=== PATIENT | female | born 1965 | race Caucasian/White ===

== ENCOUNTER 2016-10-17 17:28 | Emergency (ER) | payer BC ==
[2016-10-17 17:40] VITALS: BP 140/78
[2016-10-17] MEDS ORDERED: Magnesium Citrate Solution 296 ML Bottle PO ONE (18:14)
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
[2016-10-17] MEDS ORDERED: Ondansetron 4 MG Tab.DIS PO ONE (18:39)
== END 2016-10-17 18:55 | disposition home or self-care (01) ==
LOC: KA.ED 17:28
DX: K64.9 Unspecified hemorrhoids (principal); K59.00 Constipation, unspecified; I10 Essential (primary) hypertension; K21.9 Gastro-esophageal reflux disease without esophagitis; F41.9 Anxiety disorder, unspecified; F32.9 Major depressive disorder, single episode, unspecified; E03.9 Hypothyroidism, unspecified; Z79.899 Other long term (current) drug therapy; Z98.890 Other specified postprocedural states; Z98.84 Bariatric surgery status; Z90.710 Acquired absence of both cervix and uterus; Z88.8 Allergy status to other drugs, medicaments and biological substances
CPT/HCPCS: 74020; 99283; A9270

== ENCOUNTER 2017-08-04 19:06 | Emergency (ER) | payer BC, OTHER ==
[2017-08-04] MEDS ORDERED: Sodium Chloride 0.9% 5 ML Syringe FLUSH PRN (19:13)
[2017-08-04] MEDS ORDERED: Ondansetron 4 MG/2 ML SDV IVPUSH ONE (19:13)
[2017-08-04] MEDS ORDERED: Sodium Chloride 0.9% 1,000 ML IV ONE (19:13)
--- NOTE | 2017-08-04 19:16 | EDM.PDOC ---
ED HPI GENERAL MEDICAL PROBLEM - General Chief Complaint: General Stated Complaint: Flank Pain Time Seen by Provider: 08/04/17 19:14 Source of Information: Reports: Patient History Limitations: Reports: No Limitations - History of Present Illness INITIAL COMMENTS - FREE TEXT/NARRATIVE: 52 YO WF presents to ER with 5 day history of dysuria, with frequency, urgency, and trace hematuria. Pt reports today she developed right flank pain and mild dizziness. Pt denies any history of UTI's in the past. Pt reports she had 1 episode of vomiting earlier today and states she still feels nauseated. Onset Date: 07/31/17 Duration: Day(s): (5) Location: Reports: Back Quality: Reports: Ache Severity: Mild Improves with: Reports: None Worsens with: Reports: None Associated Symptoms: Reports: Fever/Chills, Loss of Appetite, Nausea/Vomiting - Related Data Allergies Allergy/AdvReac Type Severity Reaction Status Date / Time sertraline HCl [From Zoloft] Allergy Rash Verified 10/17/16 17:41 Home Meds: Home Meds Levothyroxine [Synthroid] 100 mcg PO DAILY 07/03/13 [History] Multivitamin [Multivitamins] 1 tab PO DAILY 07/03/13 [History] lamoTRIgine [Lamictal] 250 mg PO BID 07/03/13 [History] Docusate Sodium [Colace] 100 mg PO DAILY 08/31/15 [History] Fish Oil/[place]-3 Fatty Acids [Fish Oil 1,000 MG] 2 cap PO DAILY 08/31/15 [ History] Gabapentin [Neurontin] 300 mg PO BEDTIME 08/31/15 [History] Losartan/Hydrochlorothiazide [Hyzaar 100-25] 0.5 tab PO DAILY 08/31/15 [History] Polyethylene Glycol 3350 [Miralax] 17 gm PO DAILY 08/31/15 [History] QUEtiapine Fumarate [Seroquel] 600 mg PO BEDTIME 08/31/15 [History] Cyanocobalamin (Vitamin B12) [Vitamin B12] 1,000 mcg PO DAILY 03/09/16 [History] Fexofenadine [Mare] 180 mg PO DAILY PRN 03/09/16 [History] ClonazePAM [KlonoPIN] 1 mg PO QID 10/17/16 [History] Fluticasone Propionate [Flonase] 2 spray NASBOTH DAILY PRN 10/17/16 [History] Acetaminophen/HYDROcodone [[place] 325-5 MG] 1 tab PO Q6H 5 Days #20 tablet [Rx] Baclofen 10 mg PO TID 07/20/17 [History] Calc/D3/Mag/Zn/Director Of Quantitative Research/[place] [Calcium 600 MG Plus Vit D] 2 each PO DAILY [History] Melatonin [Melatin] 3 mg PO BEDTIME 07/20/17 [History] Non-Formulary Medication [NF Drug] 1 PRN 07/20/17 [History] Ranitidine [Zantac] 150 mg PO DAILY 07/20/17 [History] Cephalexin [Keflex] 500 mg PO Q6H #40 cap 08/04/17 [Rx] Ondansetron [Zofran ODT] 4 mg PO Q8HR PRN #10 tab.dis 08/04/17 [Rx] Phenazopyridine HCl [Pyridium] 200 mg PO TID #6 tablet 08/04/17 [Rx] Past Medical History Cardiovascular History: Reports: Hypertension Gastrointestinal History: Reports: GERD Genitourinary History: Reports: None 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: Dysfunctional 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 Bleeding, Musculoskeletal History: Reports: Other (See Below) Other Musculoskeletal History: shoulder fracture, and rotator cuff tear Psychiatric History: Reports: Anxiety, Depression Endocrine/Metabolic History: Reports: Hypothyroidism - Infectious Disease History Infectious Disease History: Reports: Chicken Pox, Measles, Mumps, Shingles - Past Surgical History GI Surgical History: Reports: Bariatric Procedure Musculoskeletal Surgical History: Reports: Shoulder Surgery Social & Family History - Family History Cardiac: Reports: Heart Murmur, [place] - Tobacco Use Smoking Status *Q: Never Smoker Second Hand Smoke Exposure: No - Caffeine Use Caffeine Use: Reports: Coffee, Energy Drinks, Soda Caffeine Use Comment: rare caffiene use. - Alcohol Use Days Per Week of Alcohol Use: 0 - Recreational Drug Use Recreational Drug Use: No ED ROS GENERAL - Review of Systems Review Of Systems: See Below Constitutional: Reports: No Symptoms HEENT: Reports: No Symptoms Respiratory: Reports: No Symptoms Cardiovascular: Reports: No Symptoms Endocrine: Reports: No Symptoms GI/Abdominal: Reports: Nausea, Vomiting : Reports: Dysuria, Flank Pain, Frequency, Hematuria, Urgency Musculoskeletal: Reports: No Symptoms Skin: Reports: No Symptoms Neurological: Reports: No Symptoms Psychiatric: Reports: No Symptoms Hematologic/Lymphatic: Reports: No Symptoms Immunologic: Reports: No Symptoms ED EXAM, GENERAL - Physical Exam Exam: See Below Exam Limited By: No Limitations General Appearance: Alert, WD/WN, No Apparent Distress Neck: Normal Inspection, Supple, Non-Tender, Full Range of Motion Respiratory/Chest: No Respiratory Distress, Lungs Clear, Normal Breath Sounds, No Accessory Muscle Use, Chest Non-Tender Cardiovascular: Normal Peripheral Pulses, Regular Rate, Rhythm, No Edema, No Gallop, No JVD, No Murmur, No Rub GI/Abdominal: Normal Bowel Sounds, Soft, Non-Tender, No Organomegaly, No Distention, No Abnormal Bruit, No Mass Back Exam: Full Range of Motion, CVA Tenderness (R) Extremities: Normal Inspection, Normal Range of Motion, Non-Tender, Normal Capillary Refill, No Pedal Edema Neurological: Alert, Oriented, CN II-XII Intact, Normal Cognition, Normal Gait, Normal Reflexes, No Motor/Sensory Deficits Psychiatric: Normal Affect, Normal Mood Skin Exam: Warm, Dry, Intact, Normal Color, No Rash Lymphatic: No Adenopathy Course - Orders/Labs/Meds Orders: Active Orders 24 hr Category Date Time Status Peripheral IV Care [RC] . DIRECTED Care 08/04/17 19:13 Active Sodium Chloride 0.9% [Normal Saline] 1,000 ml Med 08/04/17 19:13 Active IV .BOLUS Sodium Chloride 0.9% [Syrex Flush] Med 08/04/17 19:13 Active 5 ml FLUSH Q8HR PRN Peripheral IV Insertion Adult [OM.PC] Routine Oth 08/04/17 19:13 Ordered Medication Orders Sodium Chloride (Normal Saline) 1,000 mls @ 999 mls/hr IV .BOLUS ONE Stop: 08/04/17 20:13 Sodium Chloride (Syrex Flush) 5 ml FLUSH Q8HR PRN PRN Reason: Keep Vein Open Labs: Laboratory Tests 08/04/17 08/04/17 08/04/17 Range/Units 19:15 19:30 19:30 WBC 5.9 (5.0-10.0) 10^3/uL RBC 4.33 (3.80-5.50) 10^6/uL Hgb 13.1 (12.0-16.0) g/dL Hct 41.6 (37.0-47.0) % MCV 96.0 H (82.0-92.0) fL MCH 30.1 (27.0-31.0) pg MCHC 31.4 L (32.0-36.0) g/dL RDW 12.8 (11.5-14.5) % Plt Count 294 (150-300) 10^3/uL MPV 8.3 (7.4-10.4) fL Neut % (Auto) 60.9 (50.0-70.0) % Lymph % (Auto) 26.4 (20.0-40.0) % [place] % (Auto) 6.8 (2.0-8.0) % Eos % (Auto) 0.8 L (1.0-3.0) % Baso % (Auto) 5.1 H (0.0-1.0) % Neut # (Auto) 3.6 (2.5-7.0) 10^3/uL Lymph # (Auto) 1.6 (1.0-4.0) 10^3/uL [place] # (Auto) 0.4 (0.1-0.8) 10^3/uL Eos # (Auto) 0.0 L (0.1-0.3) 10^3/uL Baso # (Auto) 0.3 H (0.0-0.1) 10^3/uL Sodium 139 (136-145) mmol/L Potassium 4.0 (3.3-5.3) mmol/L Chloride 100 (98-115) mmol/L Carbon Dioxide 29.5 (21.0-32.0) mmol/L BUN 12 (6-25) mg/dL Creatinine 0.76 (0.51-1.17) mg/dL Est Cr Clr Drug Dosing TNP Estimated GFR (MDRD) > 60 mL/min Glucose 97 (70-110) mg/dL Calcium 9.4 (8.7-10.3) mg/dL Specimen Type Urinvoid Urine Color Yellow (YELLOW) Urine Appearance Slightly cloudy H (CLEAR) Urine pH 6.0 (5.0-9.0) Ur Specific [place] 1.010 (1.005-1.030) Urine Protein Negative (NEGATIVE) mg/dL Urine Glucose (UA) Negative (NEGATIVE) mg/dL Urine Ketones Negative (NEGATIVE) mg/dL Urine Occult Blood Trace-intact H (NEGATIVE) Urine Nitrite Negative (NEGATIVE) Urine Bilirubin Negative (NEGATIVE) Urine Urobilinogen 0.2 (0.2-1.0) E.U./dL Ur Leukocyte Esterase Negative (NEGATIVE) Urine RBC 0-5 /HPF Urine WBC 0-5 /HPF Ur Epithelial Cells Moderate H /LPF Urine Bacteria Few (NONE TO FEW) /HPF Meds: Medications Generic Name Dose Route Start Last Admin Trade Name Freq PRN Reason Stop Dose Admin Sodium Chloride 1,000 mls @ 999 mls/hr 08/04/17 19:13 Normal Saline IV 08/04/17 20:13 .BOLUS ONE Sodium Chloride 5 ml 08/04/17 19:13 Syrex Flush FLUSH Q8HR PRN Keep Vein Open Discontinued Medications Generic Name Dose Route Start Last Admin Trade Name Freq PRN Reason Stop Dose Admin Ketorolac Tromethamine 30 mg 08/04/17 19:24 Toradol IVPUSH 08/04/17 19:25 ONETIME ONE Ondansetron HCl 4 mg 08/04/17 19:13 Zofran IVPUSH 08/04/17 19:14 ONETIME ONE Departure - Departure Time of Disposition: 20:12 Disposition: Home, Self-Care 01 Condition: Good Clinical Impression: Urinary tract infection Qualifiers: Urinary tract infection type: acute cystitis Hematuria presence: with hematuria Qualified Code(s): N30.01 - Acute cystitis with hematuria - Discharge Information Prescriptions: Ondansetron [Zofran ODT] 4 mg PO Q8HR PRN #10 tab.dis PRN Reason: Nausea Cephalexin [Keflex] 500 mg PO Q6H #40 cap Phenazopyridine HCl [Pyridium] 200 mg PO TID #6 tablet Instructions: Urinary Tract Infection, Adult Referrals: Heri Brewster MD [Primary Care Provider] - Forms: ED Department Discharge - My Orders Last 24 Hours: My Active Orders 08/04/17 19:13 Peripheral IV Care [RC] . DIRECTED Sodium Chloride 0.9% [Normal Saline] 1,000 ml IV .BOLUS Sodium Chloride 0.9% [Syrex Flush] 5 ml FLUSH Q8HR PRN Peripheral IV Insertion Adult [OM.PC] Routine - Assessment/Plan Last 24 Hours: My Active Orders 08/04/17 19:13 Peripheral IV Care [RC] . DIRECTED Sodium Chloride 0.9% [Normal Saline] 1,000 ml IV .BOLUS Sodium Chloride 0.9% [Syrex Flush] 5 ml FLUSH Q8HR PRN Peripheral IV Insertion Adult [OM.PC] Routine Assessment:: 1. Urinary tract infection Plan: 1. Keflex 500mg PO Q6 x 10 days 2. pyridium 200mg PO TID x 2 days 3. zofran 4mg ODT Q8 PRN vomiting 4. discharge home 5. follow up with PCP for further evaluatian and treatment 6. return to ER for worsening symptoms
[2017-08-04] MEDS ORDERED: Ketorolac 30 MG/ML SDV IVPUSH ONE (19:24)
[2017-08-04 19:53] LABS: CHLORIDE,CL 100 mmol/L (98-115); SODIUM,NA 139 mmol/L (136-145)
[2017-08-04] MEDS ORDERED: Cephalexin 250 MG Cap PO ONE (20:18)
[2017-08-04] MEDS ORDERED: Phenazopyridine 100 MG Tab PO ONE (20:22)
[2017-08-04 22:59] VITALS: BP 137/75
== END 2017-08-04 20:45 | disposition home or self-care (01) ==
LOC: KA.ED 19:06
DX: N30.01 Acute cystitis with hematuria (principal); I10 Essential (primary) hypertension; K21.9 Gastro-esophageal reflux disease without esophagitis; E03.9 Hypothyroidism, unspecified; Z88.8 Allergy status to other drugs, medicaments and biological substances; Z79.899 Other long term (current) drug therapy
CPT/HCPCS: 36415; 80048; 81001; 85025; 87086; 96361; 96374; 96375; 99284; A9270; J1885; J2405; J7030

== ENCOUNTER 2018-09-28 17:10 | Observation (INO) | payer BC ==
--- NOTE | 2018-09-28 17:24 | EDM.PDOC ---
ED HPI GENERAL MEDICAL PROBLEM - General Chief Complaint: Chest Pain Stated Complaint: CHEST PAIN Time Seen by Provider: 09/28/18 17:13 Source of Information: Reports: Patient History Limitations: Reports: No Limitations - History of Present Illness INITIAL COMMENTS - FREE TEXT/NARRATIVE: 53 YO WF presents to ER with chest pain with associated nausea/vomiting which began last night. Pt reports severe burning sensation in her chest which improved after a GI cocktail which was given to her by her PCP. Pt reports associated lightheadedness and 2 episode of vomiting. Pt denies shortness of breath, or diaphoresis. Pt with PMH of gastric bypass surgery with GERD which has been treated with protonix and zantac without improvement in her chest pain. Onset Date: 09/27/18 Duration: Day(s): (2) Location: Reports: Chest Quality: Reports: Burning Severity: Moderate Improves with: Reports: None Worsens with: Reports: None Associated Symptoms: Reports: Chest Pain, Headaches, Nausea/Vomiting Chest Pain Score (Numeric/FACES): 3 - Related Data Allergies Allergy/AdvReac Type Severity Reaction Status Date / Time sertraline HCl [From Zoloft] Allergy Rash Verified 09/28/18 17:18 Home Meds: Home Meds Multivitamin [Multivitamins] 1 tab PO DAILY 07/03/13 [History] lamoTRIgine [Lamictal] 250 mg PO BID 07/03/13 [History] Docusate Sodium [Colace] 100 mg PO DAILY 08/31/15 [History] Fish Oil/Arnett-3 Fatty Acids [Fish Oil 1,000 MG] 2 cap PO DAILY 08/31/15 [ History] Gabapentin [Neurontin] 300 mg PO BEDTIME 08/31/15 [History] Polyethylene Glycol 3350 [Miralax] 17 gm PO DAILY 08/31/15 [History] Cyanocobalamin (Vitamin B12) [Vitamin B12] 2,500 mcg PO DAILY 03/09/16 [History] ClonazePAM [KlonoPIN] 1 mg PO QID PRN 10/17/16 [History] Fluticasone Propionate [Flonase] 2 spray NASBOTH DAILY 10/17/16 [History] Baclofen 10 mg PO Q8H PRN 07/20/17 [History] Calc/D3/Mag/Zn/[employer] Apprentice/[place] [Calcium 600 MG Plus Vit D] 2 each PO DAILY [History] Melatonin [Melatin] 9 mg PO BEDTIME 07/20/17 [History] Ranitidine [Zantac] 300 mg PO BEDTIME 07/20/17 [History] Aspirin 81 mg PO DAILY 10/05/17 [History] Estrogens, Conjugated [Premarin] 1.25 mg PO DAILY 10/05/17 [History] Loratadine 10 mg PO DAILY 10/05/17 [History] QUEtiapine Fumarate [Seroquel] 900 mg PO BEDTIME 10/05/17 [History] Acetaminophen [Tylenol] 650 mg PO Q4H PRN tablet 10/06/17 [Rx] Levothyroxine 112 mcg PO ACBREAKFAST #60 tablet 10/06/17 [Rx] Propranolol [Inderal LA] 160 cap PO BEDTIME 01/31/18 [History] Sennosides/Docusate Sodium [Senna-S] 1 tab PO DAILY 01/31/18 [History] Cholecalciferol (Vitamin D3) [Vitamin D3] 2,000 unit PO DAILY 09/28/18 [History] Montelukast [Singulair] 10 mg PO BEDTIME 09/28/18 [History] Pantoprazole Sodium [Protonix] 40 mg PO DAILY 09/28/18 [History] SUMAtriptan Succinate [Imitrex] 100 mg PO ASDIRECTED PRN 09/28/18 [History] Past Medical History HEENT History: Reports: Allergic Rhinitis, Impaired Vision, Other (See Below) Other HEENT History: Mild nasal septum deviation to the right Cardiovascular History: Reports: Arrhythmia, Hypertension, Other (See Below) Other Cardiovascular History: First-degree AV block Respiratory History: Reports: Intubation, Previous, Pulmonary Fibrosis, Other ( See Below) Other Respiratory History: Chronic left sided lower atelectasis, scarring, and left pleural effusion with borderline pulmonary fibrosis t Gastrointestinal History: Reports: Chronic Constipation, Colon Polyp, GERD, Hemorrhoids, Pancreatitis, Other (See Below) Other Gastrointestinal History: Post operative pancreatitis after gastric bypass surgery and incidental cholecystectomy as below. Previous external hemorrhoidectomy 2 Genitourinary History: Reports: UTI, Recurrent INSURANCE VERIFIER History: Reports: Dysfunctional Uterine Bleeding, Fibroids, Other INSURANCE VERIFIER History: Full term without complications during pregnancies or deliveries. Surgical menopause secondary to uterine fibroids and dysfunctional uterine bleeding with history of bilateral ovarian cysts Musculoskeletal History: Reports: Arthritis, Back Pain, Chronic, Fracture, Neck Pain, Chronic, Osteoarthritis, Other (See Below) Other Musculoskeletal History: Left Colles' fracture on 07/03/13. Left proximal humeral/greater tuberosity fracture with concomitant rotator cuff tear on . Mild scoliosis Neurological History: Reports: Headaches, Chronic, Neuropathy, Peripheral, Vertigo, Other (See Below) Other Neuro History: Chronic intermittent vertigo with negative MRI of the brain as below Psychiatric History: Reports: Addiction, Anxiety, Bipolar, Depression, Panic Attack, Psych Hospitalization(s), Other (See Below) Other Psychiatric History: Bipolar disorder with multiple previous inpatient hospitalizations. Previous history of chronic narcotic use Endocrine/Metabolic History: Reports: Hypothyroidism Hematologic History: Reports: Anemia, B12 Deficiency, Iron Deficiency Immunologic History: Reports: None Oncologic (Cancer) History: Reports: None Dermatologic History: Reports: Other (See Below) Other Dermatologic History: Occasional tinea - Infectious Disease History Infectious Disease History: Reports: Chicken Pox, Measles, Mumps, Shingles - Past Surgical History Head Surgeries/Procedures: Reports: None HEENT Surgical History: Reports: Adenoidectomy, Oral Surgery, Tonsillectomy, Other (See Below) Other HEENT Surgeries/Procedures: Tonsillectomy and adenoidectomy at age 5. Complete teeth extraction. Nasal septum repair in about 2014 Cardiovascular Surgical History: Reports: None Respiratory Surgical History: Reports: None GI Surgical History: Reports: Bariatric Procedure, Cholecystectomy, Colonoscopy , EGD, Polypectomy Other GI Surgeries/Procedures: Colonoscopy and EGD in about 2013 with polypectomy 6 from the colon at that time with unknown type of colonic polyps. Gastric bypass with concomitant incidental cholecystectomy in about 2004, hemorrhoidectomy 01-12-18 Female Surgical History: Reports: Hysterectomy, Salpingo-Oophorectomy, Other (See Below) Other Female Surgeries/Procedures: Complete hysterectomy with bilateral salpingo-oophorectomy secondary to dysfunctional uterine bleeding, uterine fibroids, and bilateral ovarian cysts on 02/07/14 Neurological Surgical History: Reports: C-Spine, Discectomy, Spinal Fusion, Other (See Below) Other Neurological Surgeries/Procedures: C-spine surgery including spinal fusion and discectomy, level unknown, with cadaver vertebra in her 30s Musculoskeletal Surgical History: Reports: Shoulder Surgery, Other (See Below) Other Musculoskeletal Surgeries/Procedures:: Left Shoulder open surgery including rotator cuff repair in about 2016 - Past Imaging History Past Imaging History: Reports: CAT Scan (CT of the chest on 04/21/17. CT of the abdomen and pelvis with IV contrast on 08/20/17. CT of the sinonasal region on 09/17 and 05/15/14. CT of the left humerus on 09/03/15), MRI (Lumbar spine on . MRI of the left shoulder on 07/20/17. MRI of the brain on 08/13/17), Ultrasound (Ultrasound of the chest in September 2016 with records not available), Other (See Below) (Barium enema on 10/26/13) Social & Family History - Family History HEENT: Reports: Glaucoma, Other (See Below) Other HEENT Family History: Paternal grandmother with glaucoma Cardiac: Reports: Blood Clots/VTE/DVT, CAD, Heart Murmur, IA, Other (See Below) Other Cardiac Family History: Father with history of DVTs of the legs. Brother with heart murmur secondary to Down syndrome. Maternal grandfather with fatal IA at age 57 Respiratory: Reports: None GI: Reports: Cholelithiasis, Other (See Below) Other GI Family History: Mother with cholelithiasis : Reports: None OBGYN: Reports: None Musculoskeletal: Reports: None Neurological: Reports: CVA, Seizure, Other (See Below) Other Neurological Family History: Mother with recurrent CVAs initially in her 60s. Maternal grandmother with recurrent CVAs with fatal CVA at age 93. Brother with Down syndrome's with recurrent seizures. Father with recurrent seizures secondary to MVA/head injury Psychiatric: Reports: Anxiety, Depression, Other (See Below) Other Psychiatric Family History: Mother and sisters 3 with anxiety depression disorder Endocrine/Metabolic: Reports: Diabetes, type II, IDDM, Other (See Below) Other Endocrine/Metabolic Family History: Mother with IDDM Hematologic: Reports: None Immunologic: Reports: None Dermatologic: Reports: None Oncologic: Reports: Prostate, Other (See Below) Other Oncologic Family History: Mother with unknown type of fatal cancer in her 70s. Brother with fatal stomach cancer in his 40s. Brother with testicular and prostate cancer in his 40s. 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[employer]) ED ROS GENERAL - Review of Systems Review Of Systems: See Below Constitutional: Reports: No Symptoms HEENT: Reports: No Symptoms Respiratory: Reports: No Symptoms Cardiovascular: Reports: Chest Pain, Lightheadedness Endocrine: Reports: No Symptoms GI/Abdominal: Reports: Nausea, Vomiting : Reports: No Symptoms Musculoskeletal: Reports: No Symptoms Skin: Reports: No Symptoms Neurological: Reports: No Symptoms Psychiatric: Reports: No Symptoms Hematologic/Lymphatic: Reports: No Symptoms Immunologic: Reports: No Symptoms ED EXAM, GENERAL - Physical Exam Exam: See Below Exam Limited By: No Limitations General Appearance: Alert, WD/WN, No Apparent Distress Throat/Mouth: Normal Inspection, Normal Lips, Normal Teeth, Normal Gums, Normal Oropharynx, Normal Voice, No Airway Compromise Head: Atraumatic, Normocephalic Neck: Normal Inspection, Supple, Non-Tender, Full Range of Motion Respiratory/Chest: No Respiratory Distress, Lungs Clear, Normal Breath Sounds, No Accessory Muscle Use, Chest Non-Tender Cardiovascular: Normal Peripheral Pulses, Regular Rate, Rhythm, No Edema, No Gallop, No JVD, No Murmur, No Rub GI/Abdominal: Normal Bowel Sounds, Soft, Non-Tender, No Organomegaly, No Distention, No Abnormal Bruit, No Mass Back Exam: Normal Inspection, Full Range of Motion, NT Extremities: Normal Inspection, Normal Range of Motion, Non-Tender, Normal Capillary Refill, No Pedal Edema Neurological: Alert, Oriented, CN II-XII Intact, Normal Cognition, Normal Gait, Normal Reflexes, No Motor/Sensory Deficits Psychiatric: Normal Affect, Normal Mood Skin Exam: Warm, Dry, Intact, Normal Color, No Rash Lymphatic: No Adenopathy EKG INTERPRETATION EKG Date: 09/28/18 Time: 17:23 Rhythm: NSR Rate (Beats/Min): 52 [place]: Normal P-Wave: Present QRS: Normal ST-T: Normal QT: Normal Comparison: No Change (09/2017) Course - Vital Signs Last Recorded V/S: Last Vital Signs Temp 36.9 C 09/28/18 17:14 Pulse 68 09/28/18 17:14 Resp 20 09/28/18 17:14 BP 150/70 H 09/28/18 17:14 Pulse Ox 97 09/28/18 17:14 - Orders/Labs/Meds Orders: Active Orders 24 hr Category Date Time Status EKG Documentation Completion [RC] ASDIRECTED Care 09/28/18 17:12 Active Peripheral IV Care [RC] . DIRECTED Care 09/28/18 17:12 Active Sodium Chloride 0.9% [Saline Flush] Med 09/28/18 17:12 Active 10 ml FLUSH Q8HR PRN Peripheral IV Insertion Adult [OM.PC] Routine Oth 09/28/18 17:12 Ordered EKG 12 Lead [EK] Routine Ther 09/28/18 17:12 Ordered Medication Orders Sodium Chloride (Saline Flush) 10 ml FLUSH Q8HR PRN PRN Reason: keep vein open Last Admin: 09/28/18 17:30 Dose: 10 ml Labs: Laboratory Tests 09/28/18 09/28/18 Range/Units 17:30 17:30 WBC 5.59 (5.00-10.00) 10^3/uL RBC 4.08 (3.80-5.50) 10^6/uL Hgb 12.7 (12.0-16.0) g/dL Hct 38.3 (37.0-47.0) % MCV 93.9 H (82.0-92.0) fL MCH 31.1 H (27.0-31.0) pg MCHC 33.2 (32.0-36.0) g/dL RDW 12.2 (11.5-14.5) % Plt Count 297 (150-400) 10^3/uL MPV 9.7 (7.4-10.4) fL Immature Gran % (Auto) 0.2 (0.0-5.0) % Neut % (Auto) 50.8 (50.0-70.0) % Lymph % (Auto) 38.3 (20.0-40.0) % [place] % (Auto) 7.9 (2.0-8.0) % Eos % (Auto) 2.3 (1.0-3.0) % Baso % (Auto) 0.5 (0.0-1.0) % Immature Gran # (Auto) 0.01 (0.00-0.50) 10^3/uL Neut # (Auto) 2.84 (2.50-7.00) 10^3/uL Lymph # (Auto) 2.14 (1.00-4.00) 10^3/uL [place] # (Auto) 0.44 (0.10-0.80) 10^3/uL Eos # (Auto) 0.13 (0.10-0.30) 10^3/uL Baso # (Auto) 0.03 (0.00-0.10) 10^3/uL Sodium 141 (136-145) mmol/L Potassium 4.4 (3.3-5.3) mmol/L Chloride 103 (98-115) mmol/L Carbon Dioxide 26.8 (21.0-32.0) mmol/L Anion Gap 15.6 H (5-15) mmol/L BUN 13 (6-25) mg/dL Creatinine 0.74 (0.51-1.17) mg/dL Est Cr Clr Drug Dosing 88.69 mL/min Estimated GFR (MDRD) > 60 mL/min Glucose 93 (75 - 99) mg/dL Calcium 9.1 (8.7-10.3) mg/dL Total Bilirubin 0.4 (0.2-1.0) mg/dL AST 36 (15-37) U/L ALT 26 (12-78) U/L Alkaline Phosphatase 105 (46-116) IU/L Creatine Kinase 127 (26-276) U/L CK-MB (CK-2) 1.70 (0.00-4.30) ng/mL Troponin I 0.04 (0.00-0.070) ng/mL Total Protein 6.8 (6.4-8.2) g/dL Albumin 3.63 (3.00-4.80) g/dL Lipase 105 (73-393) U/L Meds: Medications Generic Name Dose Route Start Last Admin Trade Name Freq PRN Reason Stop Dose Admin Sodium Chloride 10 ml 09/28/18 17:12 09/28/18 17:30 Saline Flush FLUSH 10 ml Q8HR PRN Administration keep vein open Discontinued Medications Generic Name Dose Route Start Last Admin Trade Name Freq PRN Reason Stop Dose Admin Aspirin 270 mg 09/28/18 17:53 Aspirin PO 09/28/18 17:54 ONETIME ONE Aspirin 243 mg 09/28/18 17:55 Aspirin PO 09/28/18 17:56 ONETIME ONE Nitroglycerin 1 gm 09/28/18 17:53 09/28/18 17:58 Nitro-Bid 2% TOP 09/28/18 17:54 1 gm ONETIME ONE Administration - Radiology Interpretation Free Text/Narrative:: CXR- NAD Departure - Departure Time of Disposition: 18:23 Disposition: Refer to Observation Condition: Fair Clinical Impression: Atypical chest pain Referrals: Guillermo Fritz PA-C [Primary Care Provider] - Forms: ED Department Discharge - My Orders Last 24 Hours: My Active Orders 09/28/18 17:12 EKG Documentation Completion [RC] ASDIRECTED Peripheral IV Care [RC] . DIRECTED Sodium Chloride 0.9% [Saline Flush] 10 ml FLUSH Q8HR PRN Peripheral IV Insertion Adult [OM.PC] Routine EKG 12 Lead [EK] Routine - Assessment/Plan Last 24 Hours: My Active Orders 09/28/18 17:12 EKG Documentation Completion [RC] ASDIRECTED Peripheral IV Care [RC] . DIRECTED Sodium Chloride 0.9% [Saline Flush] 10 ml FLUSH Q8HR PRN Peripheral IV Insertion Adult [OM.PC] Routine EKG 12 Lead [EK] Routine Assessment:: 1. chest pain- improved with nitro Plan: 1. admit for obs- Dr Del Cid 2. ASA/Nitro 3. supportive care 4. trop I Q6 x 3
[2018-09-28] MEDS: Sodium Chloride 0.9% 10 ML Syringe FLUSH PRN ×2 (17:30→22:38)
--- NOTE | 2018-09-28 17:46 | CR ---
[id number] RAD/RAD Chest PA And Lateral EXAM: RAD Chest PA And Lateral CLINICAL DATA: CHEST PAIN COMPARISON: NO PREVIOUS SIMILAR EXAM IS AVAILABLE. FINDINGS: The lungs are clear. There is elevation of the left hemidiaphragm. Surgical changes of the cervical spine are seen. The cardiac silhouette is within normal limits. IMPRESSION: ELEVATION OF LEFT HEMIDIAPHRAGM. NO PNEUMOTHORAX. NO OBVIOUS PLEURAL EFFUSION. NO PNEUMONIA. Rahul Galan MD 09/28/18 1244 Thank you for allowing us to participate in the care of your patient.
[2018-09-28] MEDS ORDERED: Nitroglycerin 2% Oint 1 GM UD Packet TOP ONE (17:53)
[2018-09-28] MEDS ORDERED: Aspirin 81 MG Tab.Chew PO ONE ×2 (17:53→17:55)
[2018-09-28 18:10] LABS: ANION GAP 15.6 mmol/L (5-15); CHLORIDE,CL 103 mmol/L (98-115); SODIUM,NA 141 mmol/L (136-145)
[2018-09-28] MEDS ORDERED: Morphine 2 MG/ML Syringe IVPUSH PRN (18:27)
[2018-09-28] MEDS ORDERED: Sodium Chloride 0.9% 10 ML Syringe FLUSH PRN (18:27)
[2018-09-28] MEDS ORDERED: Ondansetron 4 MG/2 ML SDV IV PRN (18:27)
[2018-09-28] MEDS: Nitroglycerin 2% Oint 1 GM UD Packet TOP SCH (20:09)
[2018-09-28] MEDS ORDERED: Acetaminophen 325 MG Tab PO PRN (20:33)
[2018-09-28] MEDS ORDERED: SUMAtriptan 25 MG Tab PO PRN (20:33)
[2018-09-28] MEDS ORDERED: Baclofen 10 MG Tab PO PRN (20:33)
[2018-09-28] MEDS ORDERED: Montelukast 10 MG Tab PO SCH (21:00)
[2018-09-28] MEDS ORDERED: Propranolol 80 MG Cap.ER PO SCH (21:00)
[2018-09-28] MEDS ORDERED: Gabapentin 300 MG Cap PO SCH (21:00)
[2018-09-28] MEDS ORDERED: Melatonin 3 MG Tab PO SCH (21:00)
[2018-09-28] MEDS ORDERED: QUEtiapine 100 MG Tab PO SCH (21:00)
[2018-09-28] MEDS ORDERED: Nitroglycerin 0.4 MG Tab.SL SL ONE (23:03)
[2018-09-28] MEDS: ClonazePAM 0.5 MG Tab PO PRN (23:17)
[2018-09-28] MEDS: lamoTRIgine 100 MG Tab PO SCH (23:47)
[2018-09-29] MEDS: Nitroglycerin 2% Oint 1 GM UD Packet TOP SCH ×2 (00:42→06:41)
[2018-09-29] MEDS ORDERED: Nitroglycerin 2% Oint 1 GM UD Packet TOP ONE (04:30)
[2018-09-29 06:40] VITALS: BP 91/56
[2018-09-29] MEDS ORDERED: Levothyroxine 112 MCG Tab PO SCH (07:30)
[2018-09-29 07:58] LABS: ANION GAP 14.3 mmol/L (5-15); CHLORIDE,CL 104 mmol/L (98-115); SODIUM,NA 143 mmol/L (136-145)
[2018-09-29] MEDS: lamoTRIgine 100 MG Tab PO SCH (08:01)
--- NOTE | 2018-09-29 08:49 | PCM.HP ---
H&P History of Present Illness - General Date of Service: 09/29/18 Admit Problem/Dx: Admission Diagnosis/Problem Admission Diagnosis/Problem Chest pain Source of Information: Patient Chest Pain Score (Numeric/FACES): 3 - Related Data Allergies/Adverse Reactions: Allergies Allergy/AdvReac Type Severity Reaction Status Date / Time sertraline HCl [From Zoloft] Allergy Rash Verified 09/28/18 17:18 Home Medications: Home Meds Multivitamin [Multivitamins] 1 tab PO DAILY 07/03/13 [History] lamoTRIgine [Lamictal] 250 mg PO BID 07/03/13 [History] Docusate Sodium [Colace] 100 mg PO DAILY 08/31/15 [History] Gabapentin [Neurontin] 300 mg PO BEDTIME 08/31/15 [History] Polyethylene Glycol 3350 [Miralax] 17 gm PO DAILY 08/31/15 [History] Cyanocobalamin (Vitamin B12) [Vitamin B12] 2,500 mcg PO DAILY 03/09/16 [History] ClonazePAM [KlonoPIN] 1 mg PO QID PRN 10/17/16 [History] Fluticasone Propionate [Flonase] 2 spray NASBOTH DAILY 10/17/16 [History] Baclofen 10 mg PO Q8H PRN 07/20/17 [History] Calc/D3/Mag/Zn/Information Systems Manager/[place] [Calcium 600 MG Plus Vit D] 2 each PO DAILY [History] Melatonin [Melatin] 9 mg PO BEDTIME 07/20/17 [History] Estrogens, Conjugated [Premarin] 1.25 mg PO DAILY 10/05/17 [History] Loratadine 10 mg PO DAILY 10/05/17 [History] QUEtiapine Fumarate [Seroquel] 900 mg PO BEDTIME 10/05/17 [History] Acetaminophen [Tylenol] 650 mg PO Q4H PRN tablet 10/06/17 [Rx] Levothyroxine 112 mcg PO ACBREAKFAST #60 tablet 10/06/17 [Rx] Propranolol [Inderal LA] 160 cap PO BEDTIME 01/31/18 [History] Sennosides/Docusate Sodium [Senna-S] 1 tab PO DAILY 01/31/18 [History] Cholecalciferol (Vitamin D3) [Vitamin D3] 2,000 unit PO DAILY 09/28/18 [History] Pantoprazole Sodium [Protonix] 40 mg PO DAILY 09/28/18 [History] SUMAtriptan Succinate [Imitrex] 100 mg PO ASDIRECTED PRN 09/28/18 [History] Montelukast [Singulair] 10 mg PO DAILY #0 09/29/18 [Rx] Omeprazole 20 mg PO DAILY #30 tab 09/29/18 [Rx] Past Medical History HEENT History: Reports: Allergic Rhinitis, Impaired Vision, Other (See Below) Other HEENT History: Mild nasal septum deviation to the right Cardiovascular History: Reports: Arrhythmia, Hypertension, Other (See Below) Other Cardiovascular History: First-degree AV block Respiratory History: Reports: Intubation, Previous, Pulmonary Fibrosis, Other ( See Below) Other Respiratory History: Chronic left sided lower atelectasis, scarring, and left pleural effusion with borderline pulmonary fibrosis t Gastrointestinal History: Reports: Chronic Constipation, Colon Polyp, GERD, Hemorrhoids, Pancreatitis, Other (See Below) Other Gastrointestinal History: Post operative pancreatitis after gastric bypass surgery and incidental cholecystectomy as below. 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 Surgical menopause secondary to uterine fibroids and dysfunctional uterine bleeding with history of bilateral ovarian cysts Musculoskeletal History: Reports: Arthritis, Back Pain, Chronic, Fracture, Neck Pain, Chronic, Osteoarthritis, Other (See Below) Other Musculoskeletal History: Left Colles' fracture on 07/03/13. Left proximal humeral/greater tuberosity fracture with concomitant rotator cuff tear on . Mild scoliosis Neurological History: Reports: Headaches, Chronic, Neuropathy, Peripheral, Vertigo, Other (See Below) Other Neuro History: Chronic intermittent vertigo with negative MRI of the brain as below Psychiatric History: Reports: Addiction, Anxiety, Bipolar, Depression, Panic Attack, Psych Hospitalization(s), Other (See Below) Other Psychiatric History: Bipolar disorder with multiple previous inpatient hospitalizations. Previous history of chronic narcotic use Endocrine/Metabolic History: Reports: Hypothyroidism Hematologic History: Reports: Anemia, B12 Deficiency, Iron Deficiency Immunologic History: Reports: None Oncologic (Cancer) History: Reports: None Dermatologic History: Reports: Other (See Below) Other Dermatologic History: Occasional tinea - Infectious Disease History Infectious Disease History: Reports: Chicken Pox, Measles, Mumps, Shingles - Past Surgical History Head Surgeries/Procedures: Reports: None HEENT Surgical History: Reports: Adenoidectomy, Oral Surgery, Tonsillectomy, Other (See Below) Other HEENT Surgeries/Procedures: Tonsillectomy and adenoidectomy at age 5. Complete teeth extraction. Nasal septum repair in about 2014 Cardiovascular Surgical History: Reports: None Respiratory Surgical History: Reports: None GI Surgical History: Reports: Bariatric Procedure, Cholecystectomy, Colonoscopy , EGD, Polypectomy Other GI Surgeries/Procedures: Colonoscopy and EGD in about 2013 with polypectomy 6 from the colon at that time with unknown type of colonic polyps. Gastric bypass with concomitant incidental cholecystectomy in about 2004, hemorrhoidectomy 01-12-18 Female Surgical History: Reports: Hysterectomy, Salpingo-Oophorectomy, Other (See Below) Other Female Surgeries/Procedures: Complete hysterectomy with bilateral salpingo-oophorectomy secondary to dysfunctional uterine bleeding, uterine fibroids, and bilateral ovarian cysts on 02/07/14 Neurological Surgical History: Reports: C-Spine, Discectomy, Spinal Fusion, Other (See Below) Other Neurological Surgeries/Procedures: C-spine surgery including spinal fusion and discectomy, level unknown, with cadaver vertebra in her 30s Musculoskeletal Surgical History: Reports: Shoulder Surgery, Other (See Below) Other Musculoskeletal Surgeries/Procedures:: Left Shoulder open surgery including rotator cuff repair in about 2016 - Past Imaging History Past Imaging History: Reports: CAT Scan (CT of the chest on 04/21/17. CT of the abdomen and pelvis with IV contrast on 08/20/17. CT of the sinonasal region on 09/17 and 05/15/14. CT of the left humerus on 09/03/15), MRI (Lumbar spine on . MRI of the left shoulder on 07/20/17. MRI of the brain on 08/13/17), Ultrasound (Ultrasound of the chest in September 2016 with records not available), Other (See Below) (Barium enema on 10/26/13) Social & Family History - Family History HEENT: Reports: Glaucoma, Other (See Below) Other HEENT Family History: Paternal grandmother with glaucoma Cardiac: Reports: Blood Clots/VTE/DVT, CAD, Heart Murmur, [place], Other (See Below) Other Cardiac Family History: Father with history of DVTs of the legs. Brother with heart murmur secondary to Down syndrome. Maternal grandfather with fatal [place] at age 57 Respiratory: Reports: None GI: Reports: Cholelithiasis, Other (See Below) Other GI Family History: Mother with cholelithiasis : Reports: None OBGYN: Reports: None Musculoskeletal: Reports: None Neurological: Reports: CVA, Seizure, Other (See Below) Other Neurological Family History: Mother with recurrent CVAs initially in her 60s. Maternal grandmother with recurrent CVAs with fatal CVA at age 93. Brother with Down syndrome's with recurrent seizures. Father with recurrent seizures secondary to MVA/head injury Psychiatric: Reports: Anxiety, Depression, Other (See Below) Other Psychiatric Family History: Mother and sisters 3 with anxiety depression disorder Endocrine/Metabolic: Reports: Diabetes, type II, IDDM, Other (See Below) Other Endocrine/Metabolic Family History: Mother with IDDM Hematologic: Reports: None Immunologic: Reports: None Dermatologic: Reports: None Oncologic: Reports: Prostate, Other (See Below) Other Oncologic Family History: Mother with unknown type of fatal cancer in her 70s. Brother with fatal stomach cancer in his 40s. Brother with testicular and prostate cancer in his 40s. 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[employer]) H&P Review of Systems - Review of Systems: Review Of Systems: See Below General: Reports: No Symptoms HEENT: Reports: No Symptoms Pulmonary: Reports: No Symptoms Cardiovascular: Reports: Blood Pressure Problem Gastrointestinal: Reports: Black Stool, Constipation, Diarrhea, Decreased Appetite, Difficulty Swallowing, Nausea Genitourinary: Reports: No Symptoms Musculoskeletal: Reports: No Symptoms Skin: Reports: No Symptoms Neurological: Reports: No Symptoms Hematologic/Lymphatic: Reports: No Symptoms Exam - Exam Exam: See Below - Vital Signs Vital Signs: Last Vital Signs Temp 96.1 F 09/29/18 06:39 Pulse 50 L 09/29/18 06:39 Resp 20 09/29/18 06:39 BP 91/56 L 09/29/18 06:39 Pulse Ox 96 09/29/18 06:39 Weight: 175 lb 1.6 oz - Exam General: Alert, Oriented, 4 Neck: Supple Lungs: Clear to Auscultation, Normal Respiratory Effort Cardiovascular: Regular Rate, Regular Rhythm GI/Abdominal Exam: Normal Bowel Sounds, Soft, Non-Tender, No Organomegaly, No Distention, No Abnormal Bruit, No Mass, Pelvis Stable (Female) Exam: Deferred Extremities: No Pedal Edema Peripheral Pulses: 1+: Radial (L), 2+: Radial (R) Skin: Dry Neurological: Cranial Nerves Intact Neuro Extensive - Mental Status: Alert Psychiatric: Alert, Anxious - Patient Data Lab Results Last 24 hrs: Laboratory Results - last 24 hr 09/28/18 09/28/18 09/28/18 Range/Units 09:55 17:30 17:30 WBC 5.59 (5.00-10.00) 10^3/uL RBC 4.08 (3.80-5.50) 10^6/uL Hgb 12.7 (12.0-16.0) g/dL Hct 38.3 (37.0-47.0) % MCV 93.9 H (82.0-92.0) fL MCH 31.1 H (27.0-31.0) pg MCHC 33.2 (32.0-36.0) g/dL RDW 12.2 (11.5-14.5) % Plt Count 297 (150-400) 10^3/uL MPV 9.7 (7.4-10.4) fL Immature Gran % (Auto) 0.2 (0.0-5.0) % Neut % (Auto) 50.8 (50.0-70.0) % Lymph % (Auto) 38.3 (20.0-40.0) % [place] % (Auto) 7.9 (2.0-8.0) % Eos % (Auto) 2.3 (1.0-3.0) % Baso % (Auto) 0.5 (0.0-1.0) % Immature Gran # (Auto) 0.01 (0.00-0.50) 10^3/uL Neut # (Auto) 2.84 (2.50-7.00) 10^3/uL Lymph # (Auto) 2.14 (1.00-4.00) 10^3/uL [place] # (Auto) 0.44 (0.10-0.80) 10^3/uL Eos # (Auto) 0.13 (0.10-0.30) 10^3/uL Baso # (Auto) 0.03 (0.00-0.10) 10^3/uL Sodium 141 (136-145) mmol/L Potassium 4.4 (3.3-5.3) mmol/L Chloride 103 (98-115) mmol/L Carbon Dioxide 26.8 (21.0-32.0) mmol/L Anion Gap 15.6 H (5-15) mmol/L BUN 13 (6-25) mg/dL Creatinine 0.74 (0.51-1.17) mg/dL Est Cr Clr Drug Dosing 88.69 mL/min Estimated GFR (MDRD) > 60 mL/min Glucose 93 (75 - 99) mg/dL Calcium 9.1 (8.7-10.3) mg/dL Total Bilirubin 0.4 (0.2-1.0) mg/dL AST 36 (15-37) U/L ALT 26 (12-78) U/L Alkaline Phosphatase 105 (46-116) IU/L Creatine Kinase 127 (26-276) U/L CK-MB (CK-2) 1.70 (0.00-4.30) ng/mL Troponin I 0.05 0.04 (0.00-0.070) ng/mL Total Protein 6.8 (6.4-8.2) g/dL Albumin 3.63 (3.00-4.80) g/dL Lipase 105 (73-393) U/L 09/29/18 09/29/18 Range/Units 07:18 07:18 WBC 4.89 L (5.00-10.00) 10^3/uL RBC 3.57 L (3.80-5.50) 10^6/uL Hgb 11.3 L (12.0-16.0) g/dL Hct 34.0 L (37.0-47.0) % MCV 95.2 H (82.0-92.0) fL MCH 31.7 H (27.0-31.0) pg MCHC 33.2 (32.0-36.0) g/dL RDW 12.4 (11.5-14.5) % Plt Count 277 (150-400) 10^3/uL MPV 9.8 (7.4-10.4) fL Immature Gran % (Auto) (0.0-5.0) % Neut % (Auto) (50.0-70.0) % Lymph % (Auto) (20.0-40.0) % [place] % (Auto) (2.0-8.0) % Eos % (Auto) (1.0-3.0) % Baso % (Auto) (0.0-1.0) % Immature Gran # (Auto) (0.00-0.50) 10^3/uL Neut # (Auto) (2.50-7.00) 10^3/uL Lymph # (Auto) (1.00-4.00) 10^3/uL [place] # (Auto) (0.10-0.80) 10^3/uL Eos # (Auto) (0.10-0.30) 10^3/uL Baso # (Auto) (0.00-0.10) 10^3/uL Sodium 143 (136-145) mmol/L Potassium 4.3 (3.3-5.3) mmol/L Chloride 104 (98-115) mmol/L Carbon Dioxide 29.0 (21.0-32.0) mmol/L Anion Gap 14.3 (5-15) mmol/L BUN 12 (6-25) mg/dL Creatinine 0.70 (0.51-1.17) mg/dL Est Cr Clr Drug Dosing 93.76 mL/min Estimated GFR (MDRD) > 60 mL/min Glucose 91 (75 - 99) mg/dL Calcium 8.4 L (8.7-10.3) mg/dL Total Bilirubin 0.4 (0.2-1.0) mg/dL AST 24 (15-37) U/L ALT 25 (12-78) U/L Alkaline Phosphatase 85 (46-116) IU/L Creatine Kinase (26-276) U/L CK-MB (CK-2) (0.00-4.30) ng/mL Troponin I < 0.04 (0.00-0.070) ng/mL Total Protein 5.8 L (6.4-8.2) g/dL Albumin 2.99 L (3.00-4.80) g/dL Lipase (73-393) U/L Result Diagrams: 09/29/18 07:18 09/29/18 07:18 Problem List Initiated/Reviewed/Updated: Yes Orders Last 24hrs: Active Orders 24 hr Category Date Time Status Patient Status [ADT] Routine ADT 09/28/18 18:27 Ordered Cardiac Monitoring [RC] 0300,0700,1100,1500,1900,2300 Care 09/28/18 18:28 Active EKG Documentation Completion [RC] AM Care 09/28/18 18:30 Active Oxygen Therapy [RC] .PRN Care 09/28/18 18:27 Active Up With Assistance [RC] ASDIRECTED Care 09/28/18 18:27 Active VTE/DVT Education [RC] PER UNIT ROUTINE Care 09/28/18 18:27 Active Vital Signs [RC] 0300,0700,1100,1500,1900,2300 Care 09/28/18 18:27 Active 2 Gram Sodium Diet [DIET] Diet 09/28/18 Dinner Active Acetaminophen [Tylenol] Med 09/28/18 20:33 Active 650 mg PO Q4H PRN Aspirin Med 09/29/18 09:00 Active 81 mg PO DAILY Baclofen [Lioresal] Med 09/28/18 20:33 Active 10 mg PO Q8H PRN Biotin/FA/Vit C/Vit B Complex [Nephrocaps] Med 09/29/18 09:00 Active 1 tab PO DAILY Cholecalciferol (Vitamin D3) [Vitamin D3] Med 09/29/18 09:00 Active 2,000 units PO DAILY ClonazePAM [KlonoPIN] Med 09/28/18 20:33 Active 1 mg PO QID PRN Cyanocobalamin (Vitamin B12) [Vitamin B12] Med 09/29/18 09:00 Active 2,500 mcg PO DAILY Docusate Sodium [Colace] Med 09/29/18 09:00 Active 100 mg PO DAILY Docusate Sodium/Sennosides [Senna Plus] Med 09/29/18 09:00 Active 1 tab PO DAILY Estrogens, Conjugated [Premarin] Med 09/29/18 09:00 Pending 1.25 mg PO DAILY Fluticasone Propionate [Flonase] Med 09/29/18 09:00 Active 0 gm NASBOTH DAILY Gabapentin [Neurontin] Med 09/28/18 21:00 Active 300 mg PO BEDTIME Levothyroxine Med 09/29/18 07:30 Active 112 mcg PO ACBREAKFAST Melatonin Med 09/28/18 21:00 Active 9 mg PO BEDTIME Montelukast [Singulair] Med 09/28/18 21:00 Active 10 mg PO BEDTIME Morphine Med 09/28/18 18:27 Active 2 mg IVPUSH Q2H PRN Nitroglycerin [Nitro-Bid 2%] Med 09/28/18 18:30 Active 1 gm TOP Q6H Ondansetron [Zofran] Med 09/28/18 18:27 Active 4 mg IV Q6H PRN Pantoprazole [ProTONIX] Med 09/29/18 09:00 Active 40 mg PO DAILY Polyethylene Glycol 3350 [MiraLAX] Med 09/29/18 09:00 Active 17 gm PO DAILY Propranolol [Inderal LA] Med 09/28/18 21:00 Active 160 mg PO BEDTIME QUEtiapine [SEROquel] Med 09/28/18 21:00 Hold 900 mg PO BEDTIME Ranitidine [Zantac] Med 09/28/18 21:00 Active 300 mg PO BEDTIME SUMAtriptan [Imitrex] Med 09/28/18 20:33 Active 100 mg PO DAILY PRN Sodium Chloride 0.9% [Saline Flush] Med 09/28/18 17:12 Active 10 ml FLUSH Q8HR PRN lamoTRIgine Med 09/28/18 21:00 Active 250 mg PO BID Peripheral IV Insertion Adult [OM.PC] Routine Oth 09/28/18 17:12 Ordered Peripheral IV Insertion Adult [OM.PC] Routine Oth 09/28/18 18:27 Ordered Resuscitation Status Routine Resus Stat 09/28/18 18:27 Ordered EKG 12 Lead [EK] AM Ther 09/29/18 05:11 Ordered EKG 12 Lead [EK] Routine Ther 09/28/18 17:12 Ordered Medication Orders Acetaminophen (Tylenol) 650 mg PO Q4H PRN PRN Reason: Pain Aspirin (Aspirin) 81 mg PO DAILY [facility] Last Admin: 09/29/18 08:01 Dose: 81 mg Baclofen (Lioresal) 10 mg PO Q8H PRN PRN Reason: Pain Cholecalciferol (Vitamin D3) 2,000 units PO DAILY [facility] Last Admin: 09/29/18 08:01 Dose: 2,000 units Clonazepam (Klonopin) 1 mg PO QID PRN PRN Reason: Anxiety Last Admin: 09/28/18 23:17 Dose: 1 mg Cyanocobalamin (Vitamin B12) 2,500 mcg PO DAILY [facility] Last Admin: 09/29/18 08:01 Dose: 2,500 mcg Docusate Sodium (Colace) 100 mg PO DAILY [facility] Last Admin: 09/29/18 08:01 Dose: 100 mg Fluticasone Propionate (Flonase) 0 gm NASBOTH DAILY [facility] Last Admin: 09/29/18 08:01 Dose: 2 sprays Gabapentin (Neurontin) 300 mg PO BEDTIME [facility] Last Admin: 09/28/18 23:46 Dose: 300 mg Lamotrigine (Lamotrigine) 250 mg PO BID [facility] Last Admin: 09/29/18 08:01 Dose: 250 mg Admin: 09/28/18 23:47 Dose: 250 mg Levothyroxine Sodium (Levothyroxine) 112 mcg PO ACBREAKFAST [facility] Last Admin: 09/29/18 08:01 Dose: 112 mcg Melatonin (Melatonin) 9 mg PO BEDTIME [facility] Last Admin: 09/28/18 23:46 Dose: 9 mg Montelukast Sodium (Singulair) 10 mg PO BEDTIME [facility] Last Admin: 09/28/18 23:46 Dose: 10 mg Morphine Sulfate (Morphine) 2 mg IVPUSH Q2H PRN PRN Reason: Pain (severe 7-10) Nitroglycerin (Nitro-Bid 2%) 1 gm TOP Q6H [facility] Last Admin: 09/29/18 06:41 Dose: Admin: 09/29/18 00:42 Dose: Admin: 09/28/18 20:09 Dose: Non-Formulary Medication (Estrogens, Conjugated [Premarin]) 1.25 mg PO DAILY [facility] Ondansetron HCl (Zofran) 4 mg IV Q6H PRN PRN Reason: Nausea/Vomiting Last Admin: 09/28/18 22:31 Dose: 4 mg Pantoprazole Sodium (Protonix) 40 mg PO DAILY [facility] Last Admin: 09/29/18 08:01 Dose: 40 mg Polyethylene Glycol (Miralax) 17 gm PO DAILY [facility] Last Admin: 09/29/18 08:00 Dose: 17 gm Propranolol HCl (Inderal La) 160 mg PO BEDTIME [facility] Last Admin: 09/28/18 23:45 Dose: 160 mg Quetiapine Fumarate (Seroquel) 900 mg PO BEDTIME [facility] Last Admin: 09/28/18 23:46 Dose: 300 mg Ranitidine HCl (Zantac) 300 mg PO BEDTIME [facility] Last Admin: 09/28/18 21:50 Dose: 300 mg Senna/Docusate Sodium (Senna Plus) 1 tab PO DAILY [facility] Last Admin: 09/29/18 08:01 Dose: 1 tab Sodium Chloride (Saline Flush) 10 ml FLUSH Q8HR PRN PRN Reason: keep vein open Last Admin: 09/28/18 22:38 Dose: 10 ml Admin: 09/28/18 17:30 Dose: 10 ml Sumatriptan Succinate (Imitrex) 100 mg PO DAILY PRN PRN Reason: migraine Vitamin B Complex/Vit C/Folic Acid (Nephrocaps) 1 tab PO DAILY [facility] Last Admin: 09/29/18 08:07 Dose: Assessment/Plan Comment:: History of Present Illness 53-year-old female was admitted through the ED 2 days ago acid reflux, next day somewhat better, then next day went to work took phenergen and imitrex due to nausea, then vomited, poor appetitie, completed work, was driving home, had c/p , seen at [facility] gave GI cocktail with minimal alleviating pain, then was seen in ED last night due to chest pain and overall not feeling well and was given Nitro and ASA and this seemed to help with less radiating pain. Last night ate supper without pain or acid reflux sx. patient does have a history of significant anxiety. Primary hospital problems r/o [place], this has been ruled out. Anxiety, acute, Klonopin helped alleviate sx, Disposition, patient will be discharged from the hospital, doubtful cardiac related however she may need further management on her psychiatric medications. She will be seen in [place] for follow-up care. We'll consider stress testing however low threshold flow CAD probability with high possibility of false positive.
[2018-09-29] MEDS ORDERED: Pantoprazole 40 MG Tab.CR PO SCH (09:00)
[2018-09-29] MEDS ORDERED: Aspirin 81 MG Tab.Chew PO SCH (09:00)
[2018-09-29] MEDS ORDERED: Cholecalciferol (Vitamin D3) 1,000 Unit Tab PO SCH (09:00)
[2018-09-29] MEDS ORDERED: ESTROGENS CONJUGATED 1.25 MG PO SCH (09:00)
[2018-09-29] MEDS ORDERED: Aspirin 325 MG Tab.EC PO SCH (09:00)
[2018-09-29] MEDS ORDERED: Polyethylene Glycol 3350 Powder 17 GM Packet PO SCH (09:00)
[2018-09-29] MEDS ORDERED: Docusate Sodium 100 MG Cap PO SCH (09:00)
[2018-09-29] MEDS ORDERED: Biotin/Folic Acid/Vitamin C/Vitamin B Complex Tab PO SCH (09:00)
[2018-09-29] MEDS ORDERED: Cyanocobalamin (Vitamin B12) 500 MCG Tab PO SCH (09:00)
[2018-09-29] MEDS ORDERED: Fluticasone Propionate Nasal Spray 16 GM Bottle NASBOTH SCH (09:00)
[2018-09-29] MEDS ORDERED: EPINEPHrine 1:10,000 1 MG/10 ML Syringe IVPUSH PRN (09:43)
[2018-09-29] MEDS ORDERED: Lidocaine 2% 100 MG/5 ML Syringe IVPUSH PRN (09:43)
[2018-09-29] MEDS ORDERED: Atropine 0.1 MG/ML 10 ML Syringe IVPUSH PRN (09:43)
[2018-09-29] MEDS ORDERED: Nitroglycerin 0.4 MG Tab.SL SL PRN (09:43)
[2018-09-29] MEDS: ClonazePAM 0.5 MG Tab PO PRN (09:48)
--- NOTE | 2018-09-29 10:31 | PCM.DCSUM1 ---
Discharge Summary - Hospital Course Diagnosis: Stroke: No - Discharge Data Discharge Date: 09/29/18 Discharge Disposition: Home, Self-Care 01 Condition: Good - Patient Instructions Activity: As Tolerated Driving: May Drive Today Showering/Bathing: May Shower Notify Provider of: Increased Pain - Discharge Plan *PRESCRIPTION DRUG MONITORING PROGRAM REVIEWED*: Not Applicable *COPY OF PRESCRIPTION DRUG MONITORING REPORT IN PATIENT LORENA: Not Applicable Prescriptions/Med Rec: Omeprazole 20 mg PO DAILY #30 tab. Home Medications: Home Meds Multivitamin [Multivitamins] 1 tab PO DAILY 07/03/13 [History] lamoTRIgine [Lamictal] 250 mg PO BID 07/03/13 [History] Docusate Sodium [Colace] 100 mg PO DAILY 08/31/15 [History] Gabapentin [Neurontin] 300 mg PO BEDTIME 08/31/15 [History] Polyethylene Glycol 3350 [Miralax] 17 gm PO DAILY 08/31/15 [History] Cyanocobalamin (Vitamin B12) [Vitamin B12] 2,500 mcg PO DAILY 03/09/16 [History] ClonazePAM [KlonoPIN] 1 mg PO QID PRN 10/17/16 [History] Fluticasone Propionate [Flonase] 2 spray NASBOTH DAILY 10/17/16 [History] Baclofen 10 mg PO Q8H PRN 07/20/17 [History] Calc/D3/Mag/Zn/Mysql Database Administrator/Gamal/[place] [Calcium 600 MG Plus Vit D] 2 each PO DAILY [History] Melatonin [Melatin] 9 mg PO BEDTIME 07/20/17 [History] Estrogens, Conjugated [Premarin] 1.25 mg PO DAILY 10/05/17 [History] Loratadine 10 mg PO DAILY 10/05/17 [History] QUEtiapine Fumarate [Seroquel] 900 mg PO BEDTIME 10/05/17 [History] Acetaminophen [Tylenol] 650 mg PO Q4H PRN tablet 10/06/17 [Rx] Levothyroxine 112 mcg PO ACBREAKFAST #60 tablet 10/06/17 [Rx] Propranolol [Inderal LA] 160 cap PO BEDTIME 01/31/18 [History] Sennosides/Docusate Sodium [Senna-S] 1 tab PO DAILY 01/31/18 [History] Cholecalciferol (Vitamin D3) [Vitamin D3] 2,000 unit PO DAILY 09/28/18 [History] Pantoprazole Sodium [Protonix] 40 mg PO DAILY 09/28/18 [History] SUMAtriptan Succinate [Imitrex] 100 mg PO ASDIRECTED PRN 09/28/18 [History] Montelukast [Singulair] 10 mg PO DAILY #0 09/29/18 [Rx] Omeprazole 20 mg PO DAILY #30 tab.rap. 09/29/18 [Rx] Referrals: Guillermo Fritz, CHERYL [Primary Care Provider] - - Discharge Summary/Plan Comment DC Time >30 min.: Yes Discharge Summary/Plan Comment: Echocardiogram outpatient Set patient up for EGD at [facility] [place] Discontinued aspirin added omeprazole daily DC Zantac Change singular to am. - Patient Data Vitals - Most Recent: Last Vital Signs Temp 96.1 F 09/29/18 06:39 Pulse 50 L 09/29/18 06:39 Resp 20 09/29/18 06:39 BP 91/56 L 09/29/18 06:39 Pulse Ox 96 09/29/18 08:20 Weight - Most Recent: 175 lb 1.6 oz I&O - Last 24 hours: Intake & Output 09/28/18 09/29/18 09/29/18 22:59 06:59 14:59 Intake Total 100 775 Balance 100 775 Lab Results - Last 24 hrs: Laboratory Results - last 24 hr 09/28/18 09/28/18 09/28/18 Range/Units 09:55 17:30 17:30 WBC 5.59 (5.00-10.00) 10^3/uL RBC 4.08 (3.80-5.50) 10^6/uL Hgb 12.7 (12.0-16.0) g/dL Hct 38.3 (37.0-47.0) % MCV 93.9 H (82.0-92.0) fL MCH 31.1 H (27.0-31.0) pg MCHC 33.2 (32.0-36.0) g/dL RDW 12.2 (11.5-14.5) % Plt Count 297 (150-400) 10^3/uL MPV 9.7 (7.4-10.4) fL Immature Gran % (Auto) 0.2 (0.0-5.0) % Neut % (Auto) 50.8 (50.0-70.0) % Lymph % (Auto) 38.3 (20.0-40.0) % [place] % (Auto) 7.9 (2.0-8.0) % Eos % (Auto) 2.3 (1.0-3.0) % Baso % (Auto) 0.5 (0.0-1.0) % Immature Gran # (Auto) 0.01 (0.00-0.50) 10^3/uL Neut # (Auto) 2.84 (2.50-7.00) 10^3/uL Lymph # (Auto) 2.14 (1.00-4.00) 10^3/uL [place] # (Auto) 0.44 (0.10-0.80) 10^3/uL Eos # (Auto) 0.13 (0.10-0.30) 10^3/uL Baso # (Auto) 0.03 (0.00-0.10) 10^3/uL Sodium 141 (136-145) mmol/L Potassium 4.4 (3.3-5.3) mmol/L Chloride 103 (98-115) mmol/L Carbon Dioxide 26.8 (21.0-32.0) mmol/L Anion Gap 15.6 H (5-15) mmol/L BUN 13 (6-25) mg/dL Creatinine 0.74 (0.51-1.17) mg/dL Est Cr Clr Drug Dosing 88.69 mL/min Estimated GFR (MDRD) > 60 mL/min Glucose 93 (75 - 99) mg/dL Calcium 9.1 (8.7-10.3) mg/dL Total Bilirubin 0.4 (0.2-1.0) mg/dL AST 36 (15-37) U/L ALT 26 (12-78) U/L Alkaline Phosphatase 105 (46-116) IU/L Creatine Kinase 127 (26-276) U/L CK-MB (CK-2) 1.70 (0.00-4.30) ng/mL Troponin I 0.05 0.04 (0.00-0.070) ng/mL Total Protein 6.8 (6.4-8.2) g/dL Albumin 3.63 (3.00-4.80) g/dL Lipase 105 (73-393) U/L 09/29/18 09/29/18 Range/Units 07:18 07:18 WBC 4.89 L (5.00-10.00) 10^3/uL RBC 3.57 L (3.80-5.50) 10^6/uL Hgb 11.3 L (12.0-16.0) g/dL Hct 34.0 L (37.0-47.0) % MCV 95.2 H (82.0-92.0) fL MCH 31.7 H (27.0-31.0) pg MCHC 33.2 (32.0-36.0) g/dL RDW 12.4 (11.5-14.5) % Plt Count 277 (150-400) 10^3/uL MPV 9.8 (7.4-10.4) fL Immature Gran % (Auto) (0.0-5.0) % Neut % (Auto) (50.0-70.0) % Lymph % (Auto) (20.0-40.0) % [place] % (Auto) (2.0-8.0) % Eos % (Auto) (1.0-3.0) % Baso % (Auto) (0.0-1.0) % Immature Gran # (Auto) (0.00-0.50) 10^3/uL Neut # (Auto) (2.50-7.00) 10^3/uL Lymph # (Auto) (1.00-4.00) 10^3/uL [place] # (Auto) (0.10-0.80) 10^3/uL Eos # (Auto) (0.10-0.30) 10^3/uL Baso # (Auto) (0.00-0.10) 10^3/uL Sodium 143 (136-145) mmol/L Potassium 4.3 (3.3-5.3) mmol/L Chloride 104 (98-115) mmol/L Carbon Dioxide 29.0 (21.0-32.0) mmol/L Anion Gap 14.3 (5-15) mmol/L BUN 12 (6-25) mg/dL Creatinine 0.70 (0.51-1.17) mg/dL Est Cr Clr Drug Dosing 93.76 mL/min Estimated GFR (MDRD) > 60 mL/min Glucose 91 (75 - 99) mg/dL Calcium 8.4 L (8.7-10.3) mg/dL Total Bilirubin 0.4 (0.2-1.0) mg/dL AST 24 (15-37) U/L ALT 25 (12-78) U/L Alkaline Phosphatase 85 (46-116) IU/L Creatine Kinase (26-276) U/L CK-MB (CK-2) (0.00-4.30) ng/mL Troponin I < 0.04 (0.00-0.070) ng/mL Total Protein 5.8 L (6.4-8.2) g/dL Albumin 2.99 L (3.00-4.80) g/dL Lipase (73-393) U/L Med Orders - Current: Current Medications Acetaminophen (Tylenol) 650 mg PO Q4H PRN PRN Reason: Pain Aspirin (Aspirin) 81 mg PO DAILY [facility] Last Admin: 09/29/18 08:01 Dose: 81 mg Atropine Sulfate (Atropine 0.1 Mg/Ml) 0 mg IVPUSH ASDIRECTED PRN PRN Reason: Heart Baclofen (Lioresal) 10 mg PO Q8H PRN PRN Reason: Pain Cholecalciferol (Vitamin D3) 2,000 units PO DAILY [facility] Last Admin: 09/29/18 08:01 Dose: 2,000 units Clonazepam (Klonopin) 1 mg PO QID PRN PRN Reason: Anxiety Last Admin: 09/29/18 09:48 Dose: 1 mg Cyanocobalamin (Vitamin B12) 2,500 mcg PO DAILY [facility] Last Admin: 09/29/18 08:01 Dose: 2,500 mcg Docusate Sodium (Colace) 100 mg PO DAILY [facility] Last Admin: 09/29/18 08:01 Dose: 100 mg Epinephrine HCl (Epinephrine 1:10,000) 1 mg IVPUSH ASDIRECTED PRN PRN Reason: Heart Fluticasone Propionate (Flonase) 0 gm NASBOTH DAILY [facility] Last Admin: 09/29/18 08:01 Dose: 2 sprays Gabapentin (Neurontin) 300 mg PO BEDTIME [facility] Last Admin: 09/28/18 23:46 Dose: 300 mg Lamotrigine (Lamotrigine) 250 mg PO BID [facility] Last Admin: 09/29/18 08:01 Dose: 250 mg Levothyroxine Sodium (Levothyroxine) 112 mcg PO ACBREAKFAST [facility] Last Admin: 09/29/18 08:01 Dose: 112 mcg Lidocaine HCl (Xylocaine 2%) 0 mg IVPUSH ASDIRECTED PRN PRN Reason: Heart Melatonin (Melatonin) 9 mg PO BEDTIME [facility] Last Admin: 09/28/18 23:46 Dose: 9 mg Montelukast Sodium (Singulair) 10 mg PO BEDTIME [facility] Last Admin: 09/28/18 23:46 Dose: 10 mg Morphine Sulfate (Morphine) 2 mg IVPUSH Q2H PRN PRN Reason: Pain (severe 7-10) Nitroglycerin (Nitro-Bid 2%) 1 gm TOP Q6H [facility] Last Admin: 09/29/18 06:41 Dose: Not Given Nitroglycerin (Nitrostat) 0.4 mg SL ASDIRECTED PRN PRN Reason: Heart Non-Formulary Medication (Estrogens, Conjugated [Premarin]) 1.25 mg PO DAILY [facility] Ondansetron HCl (Zofran) 4 mg IV Q6H PRN PRN Reason: Nausea/Vomiting Last Admin: 09/28/18 22:31 Dose: 4 mg Pantoprazole Sodium (Protonix) 40 mg PO DAILY [facility] Last Admin: 09/29/18 08:01 Dose: 40 mg Polyethylene Glycol (Miralax) 17 gm PO DAILY [facility] Last Admin: 09/29/18 08:00 Dose: 17 gm Propranolol HCl (Inderal La) 160 mg PO BEDTIME [facility] Last Admin: 09/28/18 23:45 Dose: 160 mg Quetiapine Fumarate (Seroquel) 900 mg PO BEDTIME [facility] Last Admin: 09/28/18 23:46 Dose: 300 mg Ranitidine HCl (Zantac) 300 mg PO BEDTIME [facility] Last Admin: 09/28/18 21:50 Dose: 300 mg Senna/Docusate Sodium (Senna Plus) 1 tab PO DAILY [facility] Last Admin: 09/29/18 08:01 Dose: 1 tab Sodium Chloride (Saline Flush) 10 ml FLUSH Q8HR PRN PRN Reason: keep vein open Last Admin: 09/28/18 22:38 Dose: 10 ml Sumatriptan Succinate (Imitrex) 100 mg PO DAILY PRN PRN Reason: migraine Vitamin B Complex/Vit C/Folic Acid (Nephrocaps) 1 tab PO DAILY [facility] Last Admin: 09/29/18 08:07 Dose: Not Given Discontinued Medications Aspirin (Aspirin) 270 mg PO ONETIME ONE Stop: 09/28/18 17:54 Last Admin: 09/28/18 18:21 Dose: Not Given Aspirin (Aspirin) 243 mg PO ONETIME ONE Stop: 09/28/18 17:56 Last Admin: 09/28/18 18:21 Dose: 243 mg Aspirin (Ecotrin) 325 mg PO DAILY [facility] Nitroglycerin (Nitro-Bid 2%) 1 gm TOP ONETIME ONE Stop: 09/28/18 17:54 Last Admin: 09/28/18 17:58 Dose: 1 gm Nitroglycerin (Nitrostat) 0.4 mg SL ONETIME ONE Stop: 09/28/18 23:04 Last Admin: 09/28/18 23:18 Dose: 0.4 mg Nitroglycerin (Nitro-Bid 2%) 1 gm TOP ONETIME ONE Stop: 09/29/18 04:31 Last Admin: 09/29/18 04:32 Dose: Not Given Sodium Chloride (Saline Flush) 10 ml FLUSH Q8HR PRN PRN Reason: keep vein open
== END 2018-09-29 11:20 | disposition home or self-care (01) ==
LOC: KA.ED 17:10 → KA.MS 18:26
PROVIDERS: ADMIT Physician Assistant Medical; ATTEND Family Medicine
DX: R07.89 Other chest pain (principal); I10 Essential (primary) hypertension; I44.0 Atrioventricular block, first degree; K59.09 Other constipation; K21.9 Gastro-esophageal reflux disease without esophagitis; M19.90 Unspecified osteoarthritis, unspecified site; F41.9 Anxiety disorder, unspecified; F31.9 Bipolar disorder, unspecified; E03.9 Hypothyroidism, unspecified; D50.9 Iron deficiency anemia, unspecified; Z88.8 Allergy status to other drugs, medicaments and biological substances; Z79.899 Other long term (current) drug therapy
CPT/HCPCS: 36415; 71046; 80053; 82550; 82553; 83690; 84484; 85025; 85027; 93005; 96374; 99285-25; A9270-GY; G0378; J2405

== ENCOUNTER 2018-10-07 20:18 | Emergency (ER) | payer BC ==
--- NOTE | 2018-10-07 20:37 | EDM.PDOC ---
ED HPI GENERAL MEDICAL PROBLEM - General Chief Complaint: General Stated Complaint: MID CHEST PAIN, HEARTBURN Time Seen by Provider: 10/07/18 20:26 Source of Information: Reports: Patient History Limitations: Reports: No Limitations - History of Present Illness INITIAL COMMENTS - FREE TEXT/NARRATIVE: Patient is a 53-year-old female who presents to the emergency department this evening with a complaint of chest and epigastric discomfort. Patient states that approximately noon today she developed a feeling of nausea and pain in epigastric region that radiated to her chest. Patient had a similar episode on September 28, 2018 and was admitted to observation for 1 day stay. At that time troponin was negative and cardiac was ruled out. Diagnosis was GERD. Does have a history of gastric bypass. Patient states that she does have similar symptoms, but it seemed worse today. Patient denies shortness of breath, vomiting, headache, fever, bowel changes, or blood in stool. Onset: Today Duration: Hour(s): Location: Reports: Chest, Abdomen Quality: Reports: Burning Severity: Mild Improves with: Reports: None Worsens with: Reports: Eating Associated Symptoms: Reports: Nausea/Vomiting. 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: Other Medication(s) (OTC antacid, anxiety medication) - Related Data Allergies Allergy/AdvReac Type Severity Reaction Status Date / Time sertraline HCl [From Zoloft] Allergy Rash Verified 10/07/18 20:27 Home Meds: Home Meds Multivitamin [Multivitamins] 1 tab PO DAILY 07/03/13 [History] lamoTRIgine [Lamictal] 250 mg PO BID 07/03/13 [History] Docusate Sodium [Colace] 100 mg PO DAILY 08/31/15 [History] Gabapentin [Neurontin] 300 mg PO BEDTIME 08/31/15 [History] Polyethylene Glycol 3350 [Miralax] 17 gm PO DAILY 08/31/15 [History] Cyanocobalamin (Vitamin B12) [Vitamin B12] 2,500 mcg PO DAILY 03/09/16 [History] ClonazePAM [KlonoPIN] 1 mg PO QID PRN 10/17/16 [History] Fluticasone Propionate [Flonase] 2 spray NASBOTH DAILY 10/17/16 [History] Baclofen 10 mg PO Q8H PRN 07/20/17 [History] Calc/D3/Mag/Zn/College Physics Instructor/Gamal/[place] [Calcium 600 MG Plus Vit D] 2 each PO DAILY [History] Melatonin [Melatin] 9 mg PO BEDTIME 07/20/17 [History] Estrogens, Conjugated [Premarin] 1.25 mg PO DAILY 10/05/17 [History] Loratadine 10 mg PO DAILY 10/05/17 [History] QUEtiapine Fumarate [Seroquel] 900 mg PO BEDTIME 10/05/17 [History] Acetaminophen [Tylenol] 650 mg PO Q4H PRN tablet 10/06/17 [Rx] Levothyroxine 112 mcg PO ACBREAKFAST #60 tablet 10/06/17 [Rx] Propranolol [Inderal LA] 160 cap PO BEDTIME 01/31/18 [History] Sennosides/Docusate Sodium [Senna-S] 1 tab PO DAILY 01/31/18 [History] Cholecalciferol (Vitamin D3) [Vitamin D3] 2,000 unit PO DAILY 09/28/18 [History] Pantoprazole Sodium [Protonix] 40 mg PO DAILY 09/28/18 [History] SUMAtriptan Succinate [Imitrex] 100 mg PO ASDIRECTED PRN 09/28/18 [History] Montelukast [Singulair] 10 mg PO DAILY #0 09/29/18 [Rx] Omeprazole 20 mg PO DAILY #30 tab.rap.dr 09/29/18 [Rx] Past Medical History HEENT History: Reports: Allergic Rhinitis, Impaired Vision, Other (See Below) Other HEENT History: Mild nasal septum deviation to the right Cardiovascular History: Reports: Arrhythmia, Hypertension, Other (See Below) Other Cardiovascular History: First-degree AV block Respiratory History: Reports: Intubation, Previous, Pulmonary Fibrosis, Other ( See Below) Other Respiratory History: Chronic left sided lower atelectasis, scarring, and left pleural effusion with borderline pulmonary fibrosis t Gastrointestinal History: Reports: Chronic Constipation, Colon Polyp, GERD, Hemorrhoids, Pancreatitis, Other (See Below) Other Gastrointestinal History: Post operative pancreatitis after gastric bypass surgery and incidental cholecystectomy as below. Previous external hemorrhoidectomy 2 Genitourinary History: Reports: UTI, Recurrent ASSISTANT FOREMAN History: Reports: Dysfunctional Uterine Bleeding, Fibroids, Other ASSISTANT FOREMAN History: Full term without complications during pregnancies or deliveries. Surgical menopause secondary to uterine fibroids and dysfunctional uterine bleeding with history of bilateral ovarian cysts Musculoskeletal History: Reports: Arthritis, Back Pain, Chronic, Fracture, Neck Pain, Chronic, Osteoarthritis, Other (See Below) Other Musculoskeletal History: Left Colles' fracture on 07/03/13. Left proximal humeral/greater tuberosity fracture with concomitant rotator cuff tear on . Mild scoliosis Neurological History: Reports: Headaches, Chronic, Neuropathy, Peripheral, Vertigo, Other (See Below) Other Neuro History: Chronic intermittent vertigo with negative MRI of the brain as below Psychiatric History: Reports: Addiction, Anxiety, Bipolar, Depression, Panic Attack, Psych Hospitalization(s), Other (See Below) Other Psychiatric History: Bipolar disorder with multiple previous inpatient hospitalizations. Previous history of chronic narcotic use Endocrine/Metabolic History: Reports: Hypothyroidism Hematologic History: Reports: Anemia, B12 Deficiency, Iron Deficiency Immunologic History: Reports: None Oncologic (Cancer) History: Reports: None Dermatologic History: Reports: Other (See Below) Other Dermatologic History: Occasional tinea - Infectious Disease History Infectious Disease History: Reports: Chicken Pox, Measles, Mumps, Shingles - Past Surgical History Head Surgeries/Procedures: Reports: None HEENT Surgical History: Reports: Adenoidectomy, Oral Surgery, Tonsillectomy, Other (See Below) Other HEENT Surgeries/Procedures: Tonsillectomy and adenoidectomy at age 5. Complete teeth extraction. Nasal septum repair in about 2014 Cardiovascular Surgical History: Reports: None Respiratory Surgical History: Reports: None GI Surgical History: Reports: Bariatric Procedure, Cholecystectomy, Colonoscopy , EGD, Polypectomy Other GI Surgeries/Procedures: Colonoscopy and EGD in about 2013 with polypectomy 6 from the colon at that time with unknown type of colonic polyps. Gastric bypass with concomitant incidental cholecystectomy in about 2004, hemorrhoidectomy 01-12-18 Female Surgical History: Reports: Hysterectomy, Salpingo-Oophorectomy, Other (See Below) Other Female Surgeries/Procedures: Complete hysterectomy with bilateral salpingo-oophorectomy secondary to dysfunctional uterine bleeding, uterine fibroids, and bilateral ovarian cysts on 02/07/14 Neurological Surgical History: Reports: C-Spine, Discectomy, Spinal Fusion, Other (See Below) Other Neurological Surgeries/Procedures: C-spine surgery including spinal fusion and discectomy, level unknown, with cadaver vertebra in her 30s Musculoskeletal Surgical History: Reports: Shoulder Surgery, Other (See Below) Other Musculoskeletal Surgeries/Procedures:: Left Shoulder open surgery including rotator cuff repair in about 2017 - Past Imaging History Past Imaging History: Reports: CAT Scan (CT of the chest on 04/21/17. CT of the abdomen and pelvis with IV contrast on 08/20/17. CT of the sinonasal region on 09/17 and 05/15/14. CT of the left humerus on 09/03/15), MRI (Lumbar spine on . MRI of the left shoulder on 07/20/17. MRI of the brain on 08/13/17), Ultrasound (Ultrasound of the chest in September 2016 with records not available), Other (See Below) (Barium enema on 10/26/13) Social & Family History - Family History Family Medical History: Noncontributory HEENT: Reports: Glaucoma, Other (See Below) Other HEENT Family History: Paternal grandmother with glaucoma Cardiac: Reports: Blood Clots/VTE/DVT, CAD, Heart Murmur, AK, Other (See Below) Other Cardiac Family History: Father with history of DVTs of the legs. Brother with heart murmur secondary to Down syndrome. Maternal grandfather with fatal AK at age 57 Respiratory: Reports: None GI: Reports: Cholelithiasis, Other (See Below) Other GI Family History: Mother with cholelithiasis : Reports: None OBGYN: Reports: None Musculoskeletal: Reports: None Neurological: Reports: CVA, Seizure, Other (See Below) Other Neurological Family History: Mother with recurrent CVAs initially in her 60s. Maternal grandmother with recurrent CVAs with fatal CVA at age 93. Brother with Down syndrome's with recurrent seizures. Father with recurrent seizures secondary to MVA/head injury Psychiatric: Reports: Anxiety, Depression, Other (See Below) Other Psychiatric Family History: Mother and sisters 3 with anxiety depression disorder Endocrine/Metabolic: Reports: Diabetes, type II, IDDM, Other (See Below) Other Endocrine/Metabolic Family History: Mother with IDDM Hematologic: Reports: None Immunologic: Reports: None Dermatologic: Reports: None Oncologic: Reports: Prostate, Other (See Below) Other Oncologic Family History: Mother with unknown type of fatal cancer in her 70s. Brother with fatal stomach cancer in his 40s. Brother with testicular and prostate cancer in his 40s. 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 Constitutional: Reports: No Symptoms HEENT: Reports: No Symptoms Respiratory: Reports: No Symptoms Cardiovascular: Reports: Chest Pain Endocrine: Reports: No Symptoms GI/Abdominal: Reports: Abdominal Pain, Nausea. Denies: Vomiting : Reports: No Symptoms Musculoskeletal: Reports: No Symptoms Skin: Reports: No Symptoms Neurological: Reports: No Symptoms Psychiatric: Reports: No Symptoms Hematologic/Lymphatic: Reports: No Symptoms Immunologic: Reports: No Symptoms ED EXAM, GENERAL - Physical Exam Exam: See Below Exam Limited By: No Limitations General Appearance: Alert, WD/WN, No Apparent Distress Throat/Mouth: Normal Inspection, Normal Oropharynx, No Airway Compromise Head: Atraumatic, Normocephalic Neck: Normal Inspection, Supple, Non-Tender. No: Lymphadenopathy (L), Lymphadenopathy (R) Respiratory/Chest: No Respiratory Distress, Lungs Clear, Normal Breath Sounds, No Accessory Muscle Use Cardiovascular: Regular Rate, Rhythm, No Murmur GI/Abdominal: Normal Bowel Sounds, Soft, Non-Tender, No Organomegaly, No Distention, No Abnormal Bruit, No Mass. No: Distended, Guarding, Rigid, Rebound , Tender, Abnormal Bowel Sounds, Mass, Hepatomegaly, Splenomegaly Back Exam: Normal Inspection. No: CVA Tenderness (L), CVA Tenderness (R) Extremities: Normal Inspection, No Pedal Edema Neurological: Alert, Oriented, Normal Cognition Psychiatric: Normal Affect, Normal Mood. No: Anxious Skin Exam: Warm, Dry, Intact, Normal Color, No Rash EKG INTERPRETATION EKG Date: 10/07/18 Time: 20:30 Rhythm: Other (Sinus bradycardia with a first-degree AV block) [place]: Normal P-Wave: Present QRS: Normal Comparison: No Change (From EKGs on 28 September, and 09/29/2018.) Course - Vital Signs Last Recorded V/S: Last Vital Signs Temp 96.3 F 10/07/18 20:23 Pulse 66 10/07/18 20:23 Resp 14 10/07/18 20:23 BP 130/74 10/07/18 20:23 Pulse Ox 97 10/07/18 20:23 - Orders/Labs/Meds Orders: Active Orders 24 hr Category Date Time Status EKG Documentation Completion [RC] ASDIRECTED Care 10/07/18 20:27 Ordered EKG 12 Lead [EK] Routine Ther 10/07/18 20:27 Ordered - Re-Assessments/Exams Free Text/Narrative Re-Assessment/Exam: 10/07/18 21:16 Patient afebrile, vital signs stable, discomfort mostly relieved following GI cocktail. Discussed with patient taking Zantac 150 twice a day, not eating 3 hours prior to bedtime, avoiding select foods, and follow-up at [facility] tomorrow for scheduling of GI consult. Departure - Departure Time of Disposition: 21:18 Disposition: Home, Self-Care 01 Condition: Good Clinical Impression: Peptic reflux disease GERD (gastroesophageal reflux disease) Qualifiers: Esophagitis presence: esophagitis presence not specified Qualified Code(s): K21.9 - Gastro-esophageal reflux disease without esophagitis - Discharge Information Instructions: Gastroesophageal Reflux Scan, Food Choices for Gastroesophageal Reflux Disease, Adult, [id number], Gastroesophageal Reflux Disease, Adult, [id number] Referrals: Guillermo Fritz PA-C [Primary Care Provider] - Additional Instructions: Follow-up at [facility] tomorrow for GI referral suggestion. Return to emergency department sooner if symptoms continue or worsen - My Orders Last 24 Hours: My Active Orders 10/07/18 20:27 EKG Documentation Completion [RC] ASDIRECTED EKG 12 Lead [EK] Routine - Assessment/Plan Last 24 Hours: My Active Orders 10/07/18 20:27 EKG Documentation Completion [RC] ASDIRECTED EKG 12 Lead [EK] Routine Assessment:: GERD Plan: Follow-up at [facility]
[2018-10-07] MEDS ORDERED: GI Cocktail 45 ML BOTTLE PO ONE (20:39)
[2018-10-07 20:40] VITALS: BP 115/62
== END 2018-10-07 21:27 | disposition home or self-care (01) ==
LOC: KA.ED 20:18
DX: K21.9 Gastro-esophageal reflux disease without esophagitis (principal); I10 Essential (primary) hypertension; Z88.8 Allergy status to other drugs, medicaments and biological substances; Z79.899 Other long term (current) drug therapy
CPT/HCPCS: 93005; 99284-25; A9270-GY

== ENCOUNTER 2018-10-17 22:43 | Emergency (ER) | payer BC ==
--- NOTE | 2018-10-17 22:57 | EDM.PDOC ---
ED HPI GENERAL MEDICAL PROBLEM - General Chief Complaint: Chest Pain Stated Complaint: TACHYCARDIA Time Seen by Provider: 10/17/18 22:50 Source of Information: Reports: Patient History Limitations: Reports: No Limitations - History of Present Illness INITIAL COMMENTS - FREE TEXT/NARRATIVE: while lying down for bed, felt "racing heart" rate confirmed at 94bpm on home BP machine. Episode resolved prior to ambulance arrival, but felt different requesting transport. Prior episode in the past week with PCP providing workup and scheduling further testing. Denies any different activity or intake today that may have precipitated this event that resolved prior to ambulance arrival. Onset: Today, Sudden Onset Date: 10/17/18 Duration: Minutes:, Resolved Prior to Arrival Location: Reports: Chest Quality: Reports: Pressure, Throbbing Severity: Moderate Improves with: Reports: Rest Context: Reports: Other (lying in bed) Associated Symptoms: Reports: No Other Symptoms - Related Data Allergies Allergy/AdvReac Type Severity Reaction Status Date / Time sertraline HCl [From Zoloft] Allergy Rash Verified 10/17/18 22:55 Home Meds: Home Meds Multivitamin [Multivitamins] 1 tab PO DAILY 07/03/13 [History] lamoTRIgine [Lamictal] 250 mg PO BID 07/03/13 [History] Docusate Sodium [Colace] 100 mg PO DAILY 08/31/15 [History] Gabapentin [Neurontin] 300 mg PO BEDTIME 08/31/15 [History] Polyethylene Glycol 3350 [Miralax] 17 gm PO DAILY 08/31/15 [History] Cyanocobalamin (Vitamin B12) [Vitamin B12] 2,500 mcg PO DAILY 03/09/16 [History] ClonazePAM [KlonoPIN] 1 mg PO QID PRN 10/17/16 [History] Fluticasone Propionate [Flonase] 2 spray NASBOTH DAILY 10/17/16 [History] Baclofen 10 mg PO Q8H PRN 07/20/17 [History] Calc/D3/Mag/Zn/Spool Tender/[place] [Calcium 600 MG Plus Vit D] 2 each PO DAILY [History] Melatonin [Melatin] 9 mg PO BEDTIME 07/20/17 [History] QUEtiapine Fumarate [Seroquel] 900 mg PO BEDTIME 10/05/17 [History] Levothyroxine 112 mcg PO ACBREAKFAST #60 tablet 10/06/17 [Rx] Propranolol [Inderal LA] 160 cap PO BEDTIME 01/31/18 [History] Sennosides/Docusate Sodium [Senna-S] 1 tab PO DAILY 01/31/18 [History] Cholecalciferol (Vitamin D3) [Vitamin D3] 2,000 unit PO DAILY 09/28/18 [History] Pantoprazole Sodium [Protonix] 40 mg PO DAILY 09/28/18 [History] SUMAtriptan Succinate [Imitrex] 100 mg PO ASDIRECTED PRN 09/28/18 [History] Montelukast [Singulair] 10 mg PO DAILY #0 09/29/18 [Rx] Estrogens, Conjugated [Premarin] 1.25 mg PO DAILY 10/17/18 [History] Past Medical History HEENT History: Reports: Allergic Rhinitis, Impaired Vision, Other (See Below) Other HEENT History: Mild nasal septum deviation to the right Cardiovascular History: Reports: Arrhythmia, Hypertension, Other (See Below) Other Cardiovascular History: First-degree AV block Respiratory History: Reports: Intubation, Previous, Pulmonary Fibrosis, Other ( See Below) Other Respiratory History: Chronic left sided lower atelectasis, scarring, and left pleural effusion with borderline pulmonary fibrosis t Gastrointestinal History: Reports: Chronic Constipation, Colon Polyp, GERD, Hemorrhoids, Pancreatitis, Other (See Below) Other Gastrointestinal History: Post operative pancreatitis after gastric bypass surgery and incidental cholecystectomy as below. Previous external hemorrhoidectomy 2 Genitourinary History: Reports: UTI, Recurrent REAL ESTATE ASSISTANT History: Reports: Dysfunctional Uterine Bleeding, Fibroids, Other REAL ESTATE ASSISTANT History: Full term without complications during pregnancies or deliveries. Surgical menopause secondary to uterine fibroids and dysfunctional uterine bleeding with history of bilateral ovarian cysts Musculoskeletal History: Reports: Arthritis, Back Pain, Chronic, Fracture, Neck Pain, Chronic, Osteoarthritis, Other (See Below) Other Musculoskeletal History: Left Colles' fracture on 07/03/13. Left proximal humeral/greater tuberosity fracture with concomitant rotator cuff tear on . Mild scoliosis Neurological History: Reports: Headaches, Chronic, Neuropathy, Peripheral, Vertigo, Other (See Below) Other Neuro History: Chronic intermittent vertigo with negative MRI of the brain as below Psychiatric History: Reports: Addiction, Anxiety, Bipolar, Depression, Panic Attack, Psych Hospitalization(s), Other (See Below) Other Psychiatric History: Bipolar disorder with multiple previous inpatient hospitalizations. Previous history of chronic narcotic use Endocrine/Metabolic History: Reports: Hypothyroidism Hematologic History: Reports: Anemia, B12 Deficiency, Iron Deficiency Immunologic History: Reports: None Oncologic (Cancer) History: Reports: None Dermatologic History: Reports: Other (See Below) Other Dermatologic History: Occasional tinea - Infectious Disease History Infectious Disease History: Reports: Chicken Pox, Measles, Mumps, Shingles - Past Surgical History Head Surgeries/Procedures: Reports: None HEENT Surgical History: Reports: Adenoidectomy, Oral Surgery, Tonsillectomy, Other (See Below) Other HEENT Surgeries/Procedures: Tonsillectomy and adenoidectomy at age 5. Complete teeth extraction. Nasal septum repair in about 2014 Cardiovascular Surgical History: Reports: None Respiratory Surgical History: Reports: None GI Surgical History: Reports: Bariatric Procedure, Cholecystectomy, Colonoscopy , EGD, Polypectomy Other GI Surgeries/Procedures: Colonoscopy and EGD in about 2013 with polypectomy 6 from the colon at that time with unknown type of colonic polyps. Gastric bypass with concomitant incidental cholecystectomy in about 2004, hemorrhoidectomy 01-12-18 Female Surgical History: Reports: Hysterectomy, Salpingo-Oophorectomy, Other (See Below) Other Female Surgeries/Procedures: Complete hysterectomy with bilateral salpingo-oophorectomy secondary to dysfunctional uterine bleeding, uterine fibroids, and bilateral ovarian cysts on 02/07/14 Neurological Surgical History: Reports: C-Spine, Discectomy, Spinal Fusion, Other (See Below) Other Neurological Surgeries/Procedures: C-spine surgery including spinal fusion and discectomy, level unknown, with cadaver vertebra in her 30s Musculoskeletal Surgical History: Reports: Shoulder Surgery, Other (See Below) Other Musculoskeletal Surgeries/Procedures:: Left Shoulder open surgery including rotator cuff repair in about 2016 - Past Imaging History Past Imaging History: Reports: CAT Scan (CT of the chest on 04/21/17. CT of the abdomen and pelvis with IV contrast on 08/20/17. CT of the sinonasal region on 09/17 and 05/15/14. CT of the left humerus on 09/03/15), MRI (Lumbar spine on . MRI of the left shoulder on 07/20/17. MRI of the brain on 08/13/17), Ultrasound (Ultrasound of the chest in September 2016 with records not available), Other (See Below) (Barium enema on 10/26/13) Social & Family History - Family History Family Medical History: Noncontributory HEENT: Reports: Glaucoma, Other (See Below) Other HEENT Family History: Paternal grandmother with glaucoma Cardiac: Reports: Blood Clots/VTE/DVT, CAD, Heart Murmur, NH, Other (See Below) Other Cardiac Family History: Father with history of DVTs of the legs. Brother with heart murmur secondary to Down syndrome. Maternal grandfather with fatal NH at age 57 Respiratory: Reports: None GI: Reports: Cholelithiasis, Other (See Below) Other GI Family History: Mother with cholelithiasis : Reports: None OBGYN: Reports: None Musculoskeletal: Reports: None Neurological: Reports: CVA, Seizure, Other (See Below) Other Neurological Family History: Mother with recurrent CVAs initially in her 60s. Maternal grandmother with recurrent CVAs with fatal CVA at age 93. Brother with Down syndrome's with recurrent seizures. Father with recurrent seizures secondary to MVA/head injury Psychiatric: Reports: Anxiety, Depression, Other (See Below) Other Psychiatric Family History: Mother and sisters 3 with anxiety depression disorder Endocrine/Metabolic: Reports: Diabetes, type II, IDDM, Other (See Below) Other Endocrine/Metabolic Family History: Mother with IDDM Hematologic: Reports: None Immunologic: Reports: None Dermatologic: Reports: None Oncologic: Reports: Prostate, Other (See Below) Other Oncologic Family History: Mother with unknown type of fatal cancer in her 70s. Brother with fatal stomach cancer in his 40s. Brother with testicular and prostate cancer in his 40s. 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[employer]) ED [facility] GENERAL - Review of Systems Review Of Systems: See Below Constitutional: Reports: No Symptoms HEENT: Reports: No Symptoms Respiratory: Reports: No Symptoms Cardiovascular: Reports: Palpitations Endocrine: Reports: No Symptoms GI/Abdominal: Reports: No Symptoms : Reports: No Symptoms Musculoskeletal: Reports: No Symptoms Skin: Reports: No Symptoms Neurological: Reports: No Symptoms Psychiatric: Reports: No Symptoms Hematologic/Lymphatic: Reports: No Symptoms Immunologic: Reports: No Symptoms ED EXAM, GENERAL - Physical Exam Exam: See Below Exam Limited By: No Limitations General Appearance: Alert, WD/WN, No Apparent Distress Ears: Normal External Exam, Normal Canal, Hearing Grossly Normal, Normal TMs Nose: Normal Inspection, Normal Mucosa, No Blood Throat/Mouth: Normal Lips, Normal Teeth, Normal Gums, Normal Oropharynx, Other ( dry appearance) Head: Atraumatic, Normocephalic Neck: Normal Inspection Respiratory/Chest: No Respiratory Distress, Lungs Clear, Normal Breath Sounds, Chest Non-Tender Cardiovascular: Normal Peripheral Pulses, Regular Rate, Rhythm, No Edema, No Murmur GI/Abdominal: Normal Bowel Sounds, Soft, Non-Tender, No Mass (Female) Exam: Deferred Rectal (Female) Exam: Deferred Back Exam: Full Range of Motion Extremities: Normal Inspection, Non-Tender Neurological: Alert, Oriented, CN II-XII Intact, Normal Cognition Psychiatric: Normal Affect, Normal Mood Skin Exam: Warm, Dry, Intact, Normal Color, No Rash Lymphatic: No Adenopathy EKG INTERPRETATION EKG Date: 10/17/18 Time: 22:50 Rhythm: NSR Rate (Beats/Min): 53 (1st degree block) ST-T: Normal Comparison: NA - No Prior EKG Course - Vital Signs Text/Narrative:: mildly low, according her and on blood pressure readings, 0.9 saline infused. Last Recorded V/S: Last Vital Signs Temp 35.8 C 10/17/18 22:50 Pulse 54 L 10/18/18 00:52 Resp 12 10/18/18 00:45 BP 105/49 L 10/18/18 00:52 Pulse Ox 96 10/18/18 00:52 Orthostatic Blood Pressure [] 110/57 Orthostatic Blood Pressure [] 105/49 Orthostatic Blood Pressure [] 104/47 Improvement with fluids. Heart rate does increase to 58-60 upon standing, returning to baseline 55-56 continued first degree block. Highest HR of 61 with radial pulse correlated - Orders/Labs/Meds Orders: Active Orders 24 hr Category Date Time Status EKG Documentation Completion [RC] ASDIRECTED Care 10/17/18 22:51 Active EKG 12 Lead [EK] Routine Ther 10/17/18 22:50 Ordered Labs: Laboratory Tests 10/17/18 10/17/18 Range/Units 22:30 22:30 WBC 4.98 L (5.00-10.00) 10^3/uL RBC 3.55 L (3.80-5.50) 10^6/uL Hgb 11.2 L (12.0-16.0) g/dL Hct 32.5 L (37.0-47.0) % MCV 91.5 D (82.0-92.0) fL MCH 31.5 H (27.0-31.0) pg MCHC 34.5 (32.0-36.0) g/dL RDW 12.2 (11.5-14.5) % Plt Count 287 (150-400) 10^3/uL MPV 10.1 (7.4-10.4) fL Immature Gran % (Auto) 0.2 (0.0-5.0) % Neut % (Auto) 44.4 L (50.0-70.0) % Lymph % (Auto) 44.6 H (20.0-40.0) % [place] % (Auto) 8.0 (2.0-8.0) % Eos % (Auto) 2.2 (1.0-3.0) % Baso % (Auto) 0.6 (0.0-1.0) % Immature Gran # (Auto) 0.01 (0.00-0.50) 10^3/uL Neut # (Auto) 2.21 L (2.50-7.00) 10^3/uL Lymph # (Auto) 2.22 (1.00-4.00) 10^3/uL [place] # (Auto) 0.40 (0.10-0.80) 10^3/uL Eos # (Auto) 0.11 (0.10-0.30) 10^3/uL Baso # (Auto) 0.03 (0.00-0.10) 10^3/uL Sodium 144 (136-145) mmol/L Potassium 4.2 (3.3-5.3) mmol/L Chloride 103 (98-115) mmol/L Carbon Dioxide 26.0 (21.0-32.0) mmol/L Anion Gap 19.2 H (5-15) mmol/L BUN 13 (6-25) mg/dL Creatinine 0.71 (0.51-1.17) mg/dL Est Cr Clr Drug Dosing 92.44 mL/min Estimated GFR (MDRD) > 60 mL/min Glucose 101 H (75 - 99) mg/dL Calcium 8.0 L (8.7-10.3) mg/dL Total Bilirubin 0.3 (0.2-1.0) mg/dL AST 25 (15-37) U/L ALT 19 (12-78) U/L Alkaline Phosphatase 94 (46-116) IU/L Creatine Kinase 63 (26-276) U/L CK-MB (CK-2) 0.90 (0.00-4.30) ng/mL Troponin I < 0.04 (0.00-0.070) ng/mL Total Protein 6.1 L (6.4-8.2) g/dL Albumin 2.85 L (3.00-4.80) g/dL Meds: Medications Discontinued Medications Generic Name Dose Route Start Last Admin Trade Name Freq PRN Reason Stop Dose Admin Sodium Chloride 1,000 mls @ 999 mls/hr 10/17/18 23:40 10/17/18 23:51 Normal Saline IV 10/18/18 00:40 999 mls/hr .BOLUS ONE Administration Departure - Departure Time of Disposition: 01:09 Disposition: Home, Self-Care 01 Condition: Good Clinical Impression: First degree AV block, Anemia - Discharge Information *PRESCRIPTION DRUG MONITORING PROGRAM REVIEWED*: Not Applicable *COPY OF PRESCRIPTION DRUG MONITORING REPORT IN PATIENT [place]: Not Applicable Referrals: Guillermo Fritz PA-C [Primary Care Provider] - Forms: ED Department Discharge Additional Instructions: Home and rest. Contact your clinic for scheduling of EGD and discussion of Event Monitor or Holter monitor, favoring the event monitor as no set schedule to these events occurrence. Increase your fluid intake. Avoid irritation foods and drinks, avoid lying down after eating and drinking for at least one hour. - Problem List & Annotations (1) Heart palpitations SNOMED Code(s): 49125605 Code(s): R00.2 - PALPITATIONS Status: Resolved Priority: High (2) First degree AV block SNOMED Code(s): 668195382 Code(s): I44.0 - ATRIOVENTRICULAR BLOCK, FIRST DEGREE Status: Chronic Priority: High Annotation/Comment:: As above. The patient is not on any medications, which would cause this first-degree AV block with no beta kenji therapy given in the emergency room (3) Peptic reflux disease SNOMED Code(s): 026706601 Code(s): K21.9 - GASTRO-ESOPHAGEAL REFLUX DISEASE WITHOUT ESOPHAGITIS Status: Chronic Priority: Medium (4) Anemia SNOMED Code(s): 602083893 Code(s): D64.9 - ANEMIA, UNSPECIFIED Status: Chronic Priority: Medium Annotation/Comment:: Note status post gastric bypass with history of iron deficiency in vitamin B-12 deficiency. No significant anemia now. Qualifiers: Anemia type: B12 deficiency Vitamin B12 deficiency anemia type: other dietary B12 deficiency Qualified Code(s): D51.3 - Other dietary vitamin B12 deficiency anemia - Problem List Review Problem List Initiated/Reviewed/Updated: Yes - My Orders Last 24 Hours: My Active Orders 10/17/18 22:50 EKG 12 Lead [EK] Routine 10/17/18 22:51 EKG Documentation Completion [RC] ASDIRECTED - Assessment/Plan Last 24 Hours: My Active Orders 10/17/18 22:50 EKG 12 Lead [EK] Routine 10/17/18 22:51 EKG Documentation Completion [RC] ASDIRECTED Plan: Home and rest. Contact your clinic for scheduling of EGD and discussion of Event Monitor or Holter monitor, favoring the event monitor as no set schedule to these events occurrence. Increase your fluid intake. mostly increase in water intake to avoid dry mouth and maintain hydration status. Avoid irritation foods and drinks, avoid lying down after eating and drinking for at least one hour. Contact clinic Thursday am to discuss. Call or return as needed.
[2018-10-17 23:25] LABS: ANION GAP 19.2 mmol/L (5-15); CHLORIDE,CL 103 mmol/L (98-115); SODIUM,NA 144 mmol/L (136-145)
[2018-10-17] MEDS ORDERED: Sodium Chloride 0.9% 1,000 ML IV ONE (23:40)
[2018-10-18 00:53] VITALS: BP 105/49
== END 2018-10-18 01:21 | disposition home or self-care (01) ==
LOC: KA.ED 22:43
DX: I44.0 Atrioventricular block, first degree (principal); E03.9 Hypothyroidism, unspecified; D50.9 Iron deficiency anemia, unspecified; Z79.899 Other long term (current) drug therapy; Z88.8 Allergy status to other drugs, medicaments and biological substances
CPT/HCPCS: 80053; 82550; 82553; 84484; 85025; 93005; 96360; 99285-25; J7030

== ENCOUNTER 2018-11-01 08:00 | Day surgery (SDC) | payer BC ==
[~2018-11-01 08:00] MED LIST: Lactated Ringers 1,000 ML IV SCH; Sodium Chloride 0.9% 10 ML Syringe FLUSH PRN
[2018-11-01] MEDS ORDERED: EPINEPHrine 1:10,000 1 MG/10 ML Syringe ONE (08:06)
[2018-11-01] MEDS ORDERED: Midazolam 1 MG/ML 2 ML SDV ONE (08:09)
[2018-11-01] MEDS ORDERED: Propofol 200 MG/20 ML SDV ONE (08:09)
[2018-11-01] MEDS ORDERED: Lidocaine 2% 5 ML SDV ONE (08:09)
[2018-11-01] MEDS ORDERED: Midazolam 1 MG/ML 2 ML SDV IV ONE (09:14)
[2018-11-01] MEDS ORDERED: Propofol 200 MG/20 ML SDV IV ONE (09:14)
--- NOTE | 2018-11-01 09:38 | PCM.OPNOTE ---
- General Post-Op/Procedure Note Date of Surgery/Procedure: 11/01/18 Operative Procedure(s): Per gastrointestinal endoscopy. Findings: Patient has had a gastric bypass before. The pouch is normal. At the gastrojejunal junction small area of inflammation noted without ulceration. Otherwise negative. Pre Op Diagnosis: Mild inflammation at the gastroesophageal anastomosis. Otherwise negative. Anesthesia Technique: MAC Primary Surgeon: Heri Brewster Condition: Good Free Text/Narrative:: INFORMED CONSENT: Patient is here today for elective upper GI endoscopy. All aspects of this procedure have been discussed with the patient. All possible complications also, including possibility of perforation, infection, pain, bleeding, numbness of the throat, swallowing difficulty and unknown complications. In the event of perforation the patient may need surgical exploration to repair the defect. The patient understands fully well. Patient did not have any further questions for me at the end of my interview. The patient wishes for me to proceed. INSTRUMENT USED: Video gastroscope ANESTHESIA: [MAC] ASA CLASSIFICATION: [2] PROCEDURE PERFORMED: [Upper gastrointestinal endoscopy] PHARYNX: Normal. ESOPHAGUS: Normal. Proximal: Normal. Middle: Normal. Lower: Normal. GE Junction: Normal. STOMACH: Normal. Small pouch present. Status post gastric bypass. Cardia: Normal. Slight inflammation of the gastrojejunal junction. No ulceration. RETROFLEXION: Normal. BIOPSY: None. TOLERANCE: Excellent. COMPLICATIONS: None.
[2018-11-01 10:17] VITALS: BP 118/70
== END 2018-11-01 11:23 | disposition home or self-care (01) ==
LOC: KA.SDS 08:00
PROVIDERS: ATTEND Family Medicine
DX: K95.89 Other complications of other bariatric procedure (principal); J45.909 Unspecified asthma, uncomplicated; E03.9 Hypothyroidism, unspecified; E55.9 Vitamin D deficiency, unspecified; E53.8 Deficiency of other specified B group vitamins; F32.9 Major depressive disorder, single episode, unspecified; F41.9 Anxiety disorder, unspecified; Z88.8 Allergy status to other drugs, medicaments and biological substances; Z91.09 Other allergy status, other than to drugs and biological substances; Z79.899 Other long term (current) drug therapy
CPT/HCPCS: J2250; J2704; J7120

== ENCOUNTER 2019-04-10 22:06 | Emergency (ER) | payer BC ==
--- NOTE | 2019-04-10 22:57 | EDM.PDOC ---
ED HPI GENERAL MEDICAL PROBLEM - General Chief Complaint: General Stated Complaint: palpitations Time Seen by Provider: 04/10/19 22:06 Source of Information: Reports: Patient History Limitations: Reports: No Limitations - History of Present Illness INITIAL COMMENTS - FREE TEXT/NARRATIVE: 53 YO WF presents to ER complaining of palpitations similar to her previous episodes. Pt was seen here 4 days ago and had a full cardiac workup at that time. Pt has history of anxiety/panic attacks and has recently begun to have more frequent episodes. Pt was taking klonazpam before bedtime but was recently switched to Lorazepam which pt reports she took at approximately 9:30pm. Pt states she began to feel anxious and developed these palpitations which lasted approximately 30 minutes and have since resolved. Pt is worried she will continue to have these attacks. Pt states she is also worried about her husbands health. Pt is alert and oriented x 4. Pt denies any SI/HI ideation. Pt denies AH/VH. Duration: Chronic Location: Reports: Chest Severity: Moderate Improves with: Reports: None Worsens with: Reports: None Associated Symptoms: Reports: No Other Symptoms. Denies: Chest Pain, Nausea/ Vomiting, Shortness of Breath, Syncope, Weakness Treatments YARN DUMPER: Reports: Other (see below) Other Treatments YARN DUMPER: lorazepan - Related Data Allergies Allergy/AdvReac Type Severity Reaction Status Date / Time sertraline HCl [From Zoloft] Allergy Rash Verified 04/10/19 22:28 Environmental Allergens Allergy Cough Uncoded 04/07/19 22:58 Home Meds: Home Meds Multivitamin [Multivitamins] 1 tab PO DAILY 07/03/13 [History] lamoTRIgine [Lamictal] 250 mg PO BID 07/03/13 [History] Docusate Sodium [Colace] 100 mg PO DAILY 08/31/15 [History] Polyethylene Glycol 3350 [Miralax] 17 gm PO DAILY PRN 08/31/15 [History] Cyanocobalamin (Vitamin B12) [Vitamin B12] 2,500 mcg PO DAILY 03/09/16 [History] ClonazePAM [KlonoPIN] 1 mg PO QID PRN 10/17/16 [History] Fluticasone Propionate [Flonase] 2 spray NASBOTH DAILY 10/17/16 [History] Baclofen 10 mg PO TID PRN 07/20/17 [History] Calc/D3/Mag/Zn/Research Spec/[place] [Calcium 600 MG Plus Vit D] 1,200 mg PO DAILY 02/27 [History] Melatonin [Melatin] 9 mg PO BEDTIME 07/20/17 [History] QUEtiapine Fumarate [Seroquel] 900 mg PO BEDTIME 10/05/17 [History] Levothyroxine 112 mcg PO ACBREAKFAST #60 tablet 10/06/17 [Rx] Sennosides/Docusate Sodium [Senna-S] 1 tab PO DAILY 01/31/18 [History] Pantoprazole Sodium [Protonix] 40 mg PO DAILY 09/28/18 [History] Montelukast [Singulair] 10 mg PO DAILY #0 09/29/18 [Rx] Estrogens, Conjugated [Premarin] 1.25 mg PO DAILY 10/17/18 [History] Cetirizine [ZyrTEC] 10 mg PO DAILY 10/27/18 [History] Gabapentin [Neurontin] 300 mg PO BEDTIME 10/27/18 [History] Ondansetron [Zofran ODT] 4 mg PO Q4H PRN 10/27/18 [History] Ranitidine [Zantac] 300 mg PO BEDTIME 10/27/18 [History] Cholecalciferol (Vitamin D3) [Vitamin D3] 50 mcg PO DAILY 04/07/19 [History] Propranolol HCl [Propranolol] 60 mg PO BEDTIME 04/07/19 [History] Rizatriptan Benzoate [Rizatriptan] 10 mg PO ASDIRECTED PRN 04/07/19 [History] Past Medical History HEENT History: Reports: Allergic Rhinitis, Impaired Vision, Other (See Below) Other HEENT History: Mild nasal septum deviation to the right Cardiovascular History: Reports: Arrhythmia, Hypertension, Other (See Below) Other Cardiovascular History: First-degree AV block Respiratory History: Reports: Intubation, Previous, Pulmonary Fibrosis, Other ( See Below) Other Respiratory History: Chronic left sided lower atelectasis, scarring, and left pleural effusion with borderline pulmonary fibrosis t Gastrointestinal History: Reports: Chronic Constipation, Colon Polyp, GERD, Hemorrhoids, Pancreatitis, Other (See Below) Other Gastrointestinal History: Post operative pancreatitis after gastric bypass surgery and incidental cholecystectomy as below. 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 Surgical menopause secondary to uterine fibroids and dysfunctional uterine bleeding with history of bilateral ovarian cysts Musculoskeletal History: Reports: Arthritis, Back Pain, Chronic, Fracture, Neck Pain, Chronic, Osteoarthritis, Other (See Below) Other Musculoskeletal History: Left Colles' fracture on 07/03/13. Left proximal humeral/greater tuberosity fracture with concomitant rotator cuff tear on . Mild scoliosis Neurological History: Reports: Headaches, Chronic, Neuropathy, Peripheral, Vertigo, Other (See Below) Other Neuro History: Chronic intermittent vertigo with negative MRI of the brain as below Psychiatric History: Reports: Addiction, Anxiety, Bipolar, Depression, Panic Attack, Psych Hospitalization(s), Other (See Below) Other Psychiatric History: Bipolar disorder with multiple previous inpatient hospitalizations. Previous history of chronic narcotic use Endocrine/Metabolic History: Reports: Hypothyroidism Hematologic History: Reports: Anemia, B12 Deficiency, Iron Deficiency Immunologic History: Reports: None Oncologic (Cancer) History: Reports: None Dermatologic History: Reports: Other (See Below) Other Dermatologic History: Occasional tinea - Infectious Disease History Infectious Disease History: Reports: Chicken Pox, Measles, Mumps, Shingles - Past Surgical History Head Surgeries/Procedures: Reports: None HEENT Surgical History: Reports: Adenoidectomy, Oral Surgery, Tonsillectomy, Other (See Below) Other HEENT Surgeries/Procedures: Tonsillectomy and adenoidectomy at age 5. Complete teeth extraction. Nasal septum repair in about 2014 Cardiovascular Surgical History: Reports: None Respiratory Surgical History: Reports: None GI Surgical History: Reports: Bariatric Procedure, Cholecystectomy, Colonoscopy , EGD, Polypectomy Other GI Surgeries/Procedures: Colonoscopy and EGD in about 2013 with polypectomy 6 from the colon at that time with unknown type of colonic polyps. Gastric bypass with concomitant incidental cholecystectomy in about 2004, hemorrhoidectomy 01-12-18 Female Surgical History: Reports: Hysterectomy, Salpingo-Oophorectomy, Other (See Below) Other Female Surgeries/Procedures: Complete hysterectomy with bilateral salpingo-oophorectomy secondary to dysfunctional uterine bleeding, uterine fibroids, and bilateral ovarian cysts on 02/07/14 Neurological Surgical History: Reports: C-Spine, Discectomy, Spinal Fusion, Other (See Below) Other Neurological Surgeries/Procedures: C-spine surgery including spinal fusion and discectomy, level unknown, with cadaver vertebra in her 30s Musculoskeletal Surgical History: Reports: Shoulder Surgery, Other (See Below) Other Musculoskeletal Surgeries/Procedures:: Left Shoulder open surgery including rotator cuff repair in about 2016 - Past Imaging History Past Imaging History: Reports: CAT Scan (CT of the chest on 04/21/17. CT of the abdomen and pelvis with IV contrast on 08/20/17. CT of the sinonasal region on 09/17 and 05/15/14. CT of the left humerus on 09/03/15), MRI (Lumbar spine on . MRI of the left shoulder on 07/20/17. MRI of the brain on 08/13/17), Ultrasound (Ultrasound of the chest in September 2016 with records not available), Other (See Below) (Barium enema on 10/26/13) Social & Family History - Family History Family Medical History: Noncontributory HEENT: Reports: Glaucoma, Other (See Below) Other HEENT Family History: Paternal grandmother with glaucoma Cardiac: Reports: Blood Clots/VTE/DVT, CAD, Heart Murmur, MA, Other (See Below) Other Cardiac Family History: Father with history of DVTs of the legs. Brother with heart murmur secondary to Down syndrome. Maternal grandfather with fatal MA at age 57 Respiratory: Reports: None GI: Reports: Cholelithiasis, Other (See Below) Other GI Family History: Mother with cholelithiasis : Reports: None OBGYN: Reports: None Musculoskeletal: Reports: None Neurological: Reports: CVA, Seizure, Other (See Below) Other Neurological Family History: Mother with recurrent CVAs initially in her 60s. Maternal grandmother with recurrent CVAs with fatal CVA at age 93. Brother with Down syndrome's with recurrent seizures. Father with recurrent seizures secondary to MVA/head injury Psychiatric: Reports: Anxiety, Depression, Other (See Below) Other Psychiatric Family History: Mother and sisters 3 with anxiety depression disorder Endocrine/Metabolic: Reports: Diabetes, type II, IDDM, Other (See Below) Other Endocrine/Metabolic Family History: Mother with IDDM Hematologic: Reports: None Immunologic: Reports: None Dermatologic: Reports: None Oncologic: Reports: Prostate, Other (See Below) Other Oncologic Family History: Mother with unknown type of fatal cancer in her 70s. Brother with fatal stomach cancer in his 40s. Brother with testicular and prostate cancer in his 40s. 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 Denies: Agitation, Confusion, Depression, Hallucinations, Homicidal Ideation, Mood Lability, Suicidal Ideation Hematologic/Lymphatic: Reports: No Symptoms Immunologic: Reports: No Symptoms ED EXAM, GENERAL - Physical Exam Exam: See Below Exam Limited By: No Limitations General Appearance: Alert, WD/WN, No Apparent Distress Eye Exam: Bilateral Eye: EOMI, PERRL Neck: Normal Inspection, Supple, Non-Tender, Full Range of Motion Respiratory/Chest: No Respiratory Distress, Lungs Clear, Normal Breath Sounds, No Accessory Muscle Use, Chest Non-Tender Cardiovascular: Normal Peripheral Pulses, Regular Rate, Rhythm, No Edema, No Gallop, No JVD, No Murmur, No Rub GI/Abdominal: Normal Bowel Sounds, Soft, Non-Tender, No Organomegaly, No Distention, No Abnormal Bruit, No Mass Back Exam: Normal Inspection, Full Range of Motion, NT Extremities: Normal Inspection, Normal Range of Motion, Non-Tender, Normal Capillary Refill, No Pedal Edema Neurological: Alert, Oriented, CN II-XII Intact, Normal Cognition, Normal Gait, Normal Reflexes, No Motor/Sensory Deficits Psychiatric: Anxious, Flat Affect Skin Exam: Warm, Dry, Intact, Normal Color, No Rash Lymphatic: No Adenopathy EKG INTERPRETATION EKG Date: 04/10/19 Time: 22:15 Rhythm: NSR Rate (Beats/Min): 73 Terry: Normal P-Wave: Present QRS: Normal ST-T: Normal QT: Normal Comparison: No Change Course - Vital Signs Last Recorded V/S: Last Vital Signs Temp 36.6 C 04/10/19 22:10 Pulse 92 04/10/19 22:10 Resp 16 04/10/19 22:10 BP 148/66 H 04/10/19 22:10 Pulse Ox 98 04/10/19 22:10 Departure - Departure Time of Disposition: 23:17 Disposition: Home, Self-Care 01 Condition: Good Clinical Impression: Anxiety about health - Discharge Information Instructions: Living With Anxiety, Panic Attack Referrals: Guillermo Fritz PA-C [Primary Care Provider] - Forms: ED Department Discharge Additional Instructions: 1. discharge home 2. follow up in clinic for further management and treatment 3. return to ER for worsening symptoms - Assessment/Plan Assessment:: 1. Anxiety/panic attacks Plan: 1. discharge home 2. follow up in clinic for further management and treatment 3. return to ER for worsening symptoms
[2019-04-10] MEDS ORDERED: LORazepam 2 MG/ML SDV IVPUSH ONE (23:08)
[2019-04-10] MEDS ORDERED: LORazepam 2 MG/ML SDV ONE (23:09)
[2019-04-10 23:16] VITALS: BP 114/57; PULSE 61
== END 2019-04-10 23:25 | disposition home or self-care (01) ==
LOC: KA.ED 22:06
DX: F41.9 Anxiety disorder, unspecified (principal); I10 Essential (primary) hypertension; K21.9 Gastro-esophageal reflux disease without esophagitis; E03.9 Hypothyroidism, unspecified; F32.9 Major depressive disorder, single episode, unspecified; D51.9 Vitamin B12 deficiency anemia, unspecified; Z79.890 Hormone replacement therapy; Z79.899 Other long term (current) drug therapy; Z88.8 Allergy status to other drugs, medicaments and biological substances
CPT/HCPCS: 93005; 96374; 99284-25; J2060

== ENCOUNTER 2019-04-25 22:35 | Observation (INO) | payer BC ==
[2019-04-25] MEDS ORDERED: Sodium Chloride 0.9% 1,000 ML IV ONE (23:06)
[2019-04-25] MEDS ORDERED: Aspirin 81 MG Tab.Chew ONE (23:08)
[2019-04-25] MEDS ORDERED: Nitroglycerin 0.4 MG Tab.SL SL PRN (23:10)
[2019-04-25] MEDS ORDERED: Aspirin 81 MG Tab.Chew PO ONE (23:10)
[2019-04-25] MEDS ORDERED: Sodium Chloride 0.9% 10 ML Syringe FLUSH PRN (23:14)
--- NOTE | 2019-04-25 23:16 | EDM.PDOC ---
ED HPI GENERAL MEDICAL PROBLEM - General Chief Complaint: Cardiovascular Problem Stated Complaint: Heart racing Time Seen by Provider: 04/25/19 22:55 Source of Information: Reports: Patient, Significant Other History Limitations: Reports: No Limitations - History of Present Illness INITIAL COMMENTS - FREE TEXT/NARRATIVE: Patient presents with heart racing and a little pressure in the middle of her chest. This started about an hour ago at 9:50 pm. Her mouth feels dry and she has a frontal headache. She felt a little nausea en route but not now. No vomiting. At home her HR was up to 140 bpm. It subsided when she arrived in ER. She has had this happen several times in the last month and has been in the ER for it 4 times. Usually treats it with Clonazepam or Lorazepam. This time feels a little worse than previous episodes with the chest pressure. She has known 1st degree AV block for at least two years. She denies any TN or stents. She takes propranolol ER qhs. - Related Data Allergies Allergy/AdvReac Type Severity Reaction Status Date / Time sertraline HCl [From Zoloft] Allergy Rash Verified 04/25/19 22:37 Environmental Allergens Allergy Cough Uncoded 04/25/19 22:37 Home Meds: Home Meds Multivitamin [Multivitamins] 1 tab PO DAILY 07/03/13 [History] lamoTRIgine [Lamictal] 250 mg PO BID 07/03/13 [History] Docusate Sodium [Colace] 100 mg PO DAILY 08/31/15 [History] Polyethylene Glycol 3350 [Miralax] 17 gm PO DAILY PRN 08/31/15 [History] Cyanocobalamin (Vitamin B12) [Vitamin B12] 2,500 mcg PO DAILY 03/09/16 [History] ClonazePAM [KlonoPIN] 1 mg PO QID PRN 10/17/16 [History] Fluticasone Propionate [Flonase] 2 spray NASBOTH DAILY 10/17/16 [History] Baclofen 10 mg PO TID PRN 07/20/17 [History] Calc/D3/Mag/Zn/[place] [Calcium 600 MG Plus Vit D] 1,200 mg PO DAILY 02/27 [History] Melatonin [Melatin] 9 mg PO BEDTIME 07/20/17 [History] QUEtiapine Fumarate [Seroquel] 900 mg PO BEDTIME 10/05/17 [History] Levothyroxine 112 mcg PO ACBREAKFAST #60 tablet 10/06/17 [Rx] Sennosides/Docusate Sodium [Senna-S] 1 tab PO DAILY 01/31/18 [History] Pantoprazole Sodium [Protonix] 40 mg PO DAILY 09/28/18 [History] Montelukast [Singulair] 10 mg PO DAILY #0 09/29/18 [Rx] Estrogens, Conjugated [Premarin] 1.25 mg PO DAILY 10/17/18 [History] Cetirizine [ZyrTEC] 10 mg PO DAILY 10/27/18 [History] Gabapentin [Neurontin] 300 mg PO BEDTIME 10/27/18 [History] Ondansetron [Zofran ODT] 4 mg PO Q4H PRN 10/27/18 [History] Ranitidine [Zantac] 300 mg PO BEDTIME 10/27/18 [History] Cholecalciferol (Vitamin D3) [Vitamin D3] 50 mcg PO DAILY 04/07/19 [History] Propranolol HCl [Propranolol] 60 mg PO BEDTIME 04/07/19 [History] Rizatriptan Benzoate [Rizatriptan] 1 tab PO ASDIRECTED PRN 04/25/19 [History] Past Medical History HEENT History: Reports: Allergic Rhinitis, Impaired Vision, Other (See Below) Other HEENT History: Mild nasal septum deviation to the right Cardiovascular History: Reports: Arrhythmia, Hypertension, Other (See Below) Other Cardiovascular History: First-degree AV block Respiratory History: Reports: Intubation, Previous, Pulmonary Fibrosis, Other ( See Below) Other Respiratory History: Chronic left sided lower atelectasis, scarring, and left pleural effusion with borderline pulmonary fibrosis t Gastrointestinal History: Reports: Chronic Constipation, Colon Polyp, GERD, Hemorrhoids, Pancreatitis, Other (See Below) Other Gastrointestinal History: Post operative pancreatitis after gastric bypass surgery and incidental cholecystectomy as below. Previous external hemorrhoidectomy 2 Genitourinary History: Reports: UTI, Recurrent CERTIFIED PHARMACY TECH History: Reports: Dysfunctional Uterine Bleeding, Fibroids, Other CERTIFIED PHARMACY TECH History: Full term without complications during pregnancies or deliveries. Surgical menopause secondary to uterine fibroids and dysfunctional uterine bleeding with history of bilateral ovarian cysts Musculoskeletal History: Reports: Arthritis, Back Pain, Chronic, Fracture, Neck Pain, Chronic, Osteoarthritis, Other (See Below) Other Musculoskeletal History: Left Colles' fracture on 07/03/13. Left proximal humeral/greater tuberosity fracture with concomitant rotator cuff tear on . Mild scoliosis Neurological History: Reports: Headaches, Chronic, Neuropathy, Peripheral, Vertigo, Other (See Below) Other Neuro History: Chronic intermittent vertigo with negative MRI of the brain as below Psychiatric History: Reports: Addiction, Anxiety, Bipolar, Depression, Panic Attack, Psych Hospitalization(s), Other (See Below) Other Psychiatric History: Bipolar disorder with multiple previous inpatient hospitalizations. Previous history of chronic narcotic use Endocrine/Metabolic History: Reports: Hypothyroidism Hematologic History: Reports: Anemia, B12 Deficiency, Iron Deficiency Immunologic History: Reports: None Oncologic (Cancer) History: Reports: None Dermatologic History: Reports: Other (See Below) Other Dermatologic History: Occasional tinea - Infectious Disease History Infectious Disease History: Reports: Chicken Pox, Measles, Mumps, Shingles - Past Surgical History Head Surgeries/Procedures: Reports: None HEENT Surgical History: Reports: Adenoidectomy, Oral Surgery, Tonsillectomy, Other (See Below) Other HEENT Surgeries/Procedures: Tonsillectomy and adenoidectomy at age 5. Complete teeth extraction. Nasal septum repair in about 2014 Cardiovascular Surgical History: Reports: None Respiratory Surgical History: Reports: None GI Surgical History: Reports: Bariatric Procedure, Cholecystectomy, Colonoscopy , EGD, Polypectomy Other GI Surgeries/Procedures: Colonoscopy and EGD in about 2013 with polypectomy 6 from the colon at that time with unknown type of colonic polyps. Gastric bypass with concomitant incidental cholecystectomy in about 2004, hemorrhoidectomy 01-12-18 Female Surgical History: Reports: Hysterectomy, Salpingo-Oophorectomy, Other (See Below) Other Female Surgeries/Procedures: Complete hysterectomy with bilateral salpingo-oophorectomy secondary to dysfunctional uterine bleeding, uterine fibroids, and bilateral ovarian cysts on 02/07/14 Neurological Surgical History: Reports: C-Spine, Discectomy, Spinal Fusion, Other (See Below) Other Neurological Surgeries/Procedures: C-spine surgery including spinal fusion and discectomy, level unknown, with cadaver vertebra in her 30s Musculoskeletal Surgical History: Reports: Shoulder Surgery, Other (See Below) Other Musculoskeletal Surgeries/Procedures:: Left Shoulder open surgery including rotator cuff repair in about 2016 - Past Imaging History Past Imaging History: Reports: CAT Scan (CT of the chest on 04/21/17. CT of the abdomen and pelvis with IV contrast on 08/20/17. CT of the sinonasal region on 09/17 and 05/15/14. CT of the left humerus on 09/03/15), MRI (Lumbar spine on . MRI of the left shoulder on 07/20/17. MRI of the brain on 08/13/17), Ultrasound (Ultrasound of the chest in September 2016 with records not available), Other (See Below) (Barium enema on 10/26/13) Social & Family History - Family History Family Medical History: Noncontributory HEENT: Reports: Glaucoma, Other (See Below) Other HEENT Family History: Paternal grandmother with glaucoma Cardiac: Reports: Blood Clots/VTE/DVT, CAD, Heart Murmur, TN, Other (See Below) Other Cardiac Family History: Father with history of DVTs of the legs. Brother with heart murmur secondary to Down syndrome. Maternal grandfather with fatal TN at age 57 Respiratory: Reports: None GI: Reports: Cholelithiasis, Other (See Below) Other GI Family History: Mother with cholelithiasis : Reports: None OBGYN: Reports: None Musculoskeletal: Reports: None Neurological: Reports: CVA, Seizure, Other (See Below) Other Neurological Family History: Mother with recurrent CVAs initially in her 60s. Maternal grandmother with recurrent CVAs with fatal CVA at age 93. Brother with Down syndrome's with recurrent seizures. Father with recurrent seizures secondary to MVA/head injury Psychiatric: Reports: Anxiety, Depression, Other (See Below) Other Psychiatric Family History: Mother and sisters 3 with anxiety depression disorder Endocrine/Metabolic: Reports: Diabetes, type II, IDDM, Other (See Below) Other Endocrine/Metabolic Family History: Mother with IDDM Hematologic: Reports: None Immunologic: Reports: None Dermatologic: Reports: None Oncologic: Reports: Prostate, Other (See Below) Other Oncologic Family History: Mother with unknown type of fatal cancer in her 70s. Brother with fatal stomach cancer in his 40s. Brother with testicular and prostate cancer in his 40s. 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 Denies: Fever, Chills, Weakness, Decreased Appetite (ate last at 1900) HEENT: Reports: No Symptoms Respiratory: Denies: Shortness of Breath, Cough Cardiovascular: Reports: Chest Pain. Denies: Lightheadedness, Syncope GI/Abdominal: Denies: Abdominal Pain, Diarrhea, Vomiting : Denies: Dysuria, Flank Pain Musculoskeletal: Denies: Neck Pain, Shoulder Pain, Arm Pain, Back Pain, Hand Pain Skin: Denies: Cyanosis, Jaundice, Mottled, Pallor, Diaphoresis Neurological: Reports: Headache. Denies: Confusion, Dizziness, Numbness, Seizure, Syncope, Tingling, Trouble Speaking, Difficulty Walking, Weakness, Change in Speech Psychiatric: Reports: Anxiety. Denies: Agitation, Confusion ED EXAM, GENERAL - Physical Exam Exam: See Below Exam Limited By: No Limitations General Appearance: Alert, WD/WN, No Apparent Distress Eye Exam: Bilateral Eye: EOMI, Normal Inspection, PERRL Ears: Normal External Exam, Hearing Grossly Normal Nose: Normal Inspection, No Blood Throat/Mouth: Normal Inspection, Normal Lips, Normal Voice, No Airway Compromise Head: Atraumatic, Normocephalic Neck: Normal Inspection, Full Range of Motion Respiratory/Chest: No Respiratory Distress, Lungs Clear, Normal Breath Sounds, No Accessory Muscle Use Cardiovascular: Regular Rate, Rhythm, No Murmur GI/Abdominal: Normal Bowel Sounds, Soft, Non-Tender, No Organomegaly, No Distention, No Abnormal Bruit, No Mass Back Exam: Normal Inspection, Full Range of Motion. No: CVA Tenderness (L), CVA Tenderness (R) Extremities: Normal Inspection Neurological: Alert, Oriented, Normal Cognition, No Motor/Sensory Deficits Psychiatric: Normal Affect, Normal Mood EKG INTERPRETATION EKG Date: 04/25/19 Rhythm: NSR (sinus with 1st degree AV block) P-Wave: Present QRS: Normal ST-T: Normal QT: Prolonged Comparison: No Change (from 04/10/19; QT interval is the same) Course - Vital Signs Last Recorded V/S: Last Vital Signs Temp 96.9 F 04/25/19 22:40 Pulse 68 04/26/19 00:23 Resp 12 04/26/19 00:23 BP 95/49 L 04/26/19 00:23 Pulse Ox 96 04/26/19 00:23 - Orders/Labs/Meds Orders: Active Orders 24 hr Category Date Time Status Patient Status Manage Transfer [TRANSFER] Routine ADT 04/26/19 00:27 Ordered Patient Status [ADT] Routine ADT 04/26/19 00:24 Active EKG Documentation Completion [RC] ASDIRECTED Care 04/25/19 23:16 Active Peripheral IV Care [RC] . DIRECTED Care 04/25/19 23:14 Active Nitroglycerin [Nitrostat] Med 04/25/19 23:10 Active 0.4 mg SL Q5M PRN Sodium Chloride 0.9% [Saline Flush] Med 04/25/19 23:14 Active 10 ml FLUSH Q8HR PRN Peripheral IV Insertion Adult [OM.PC] Routine Oth 04/25/19 23:14 Ordered EKG 12 Lead [EK] Routine Ther 04/25/19 23:15 Ordered Medication Orders Nitroglycerin (Nitrostat) 0.4 mg SL Q5M PRN PRN Reason: Chest Pain Last Admin: 04/25/19 23:21 Dose: 0.4 mg Sodium Chloride (Saline Flush) 10 ml FLUSH Q8HR PRN PRN Reason: keep vein open Last Admin: 04/25/19 23:22 Dose: 10 ml Labs: Laboratory Tests 04/25/19 04/25/19 Range/Units 23:05 23:05 WBC 5.58 (5.00-10.00) 10^3/uL RBC 3.51 L (3.80-5.50) 10^6/uL Hgb 11.6 L (12.0-16.0) g/dL Hct 33.1 L (37.0-47.0) % MCV 94.3 H (82.0-92.0) fL MCH 33.0 H (27.0-31.0) pg MCHC 35.0 (32.0-36.0) g/dL RDW 12.4 (11.5-14.5) % Plt Count 247 (150-400) 10^3/uL MPV 9.4 (7.4-10.4) fL Immature Gran % (Auto) 0.4 (0.0-5.0) % Neut % (Auto) 44.4 L (50.0-70.0) % Lymph % (Auto) 43.0 H (20.0-40.0) % [place] % (Auto) 10.9 H (2.0-8.0) % Eos % (Auto) 0.9 L (1.0-3.0) % Baso % (Auto) 0.4 (0.0-1.0) % Immature Gran # (Auto) 0.02 (0.00-0.50) 10^3/uL Neut # (Auto) 2.48 L (2.50-7.00) 10^3/uL Lymph # (Auto) 2.40 (1.00-4.00) 10^3/uL [place] # (Auto) 0.61 (0.10-0.80) 10^3/uL Eos # (Auto) 0.05 L (0.10-0.30) 10^3/uL Baso # (Auto) 0.02 (0.00-0.10) 10^3/uL Sodium 135 L (136-145) mmol/L Potassium 3.6 (3.3-5.3) mmol/L Chloride 100 (98-115) mmol/L Carbon Dioxide 27.6 (21.0-32.0) mmol/L Anion Gap 11.0 (5-15) mmol/L BUN 14 (6-25) mg/dL Creatinine 0.70 (0.51-1.17) mg/dL Est Cr Clr Drug Dosing 97.13 mL/min Estimated GFR (MDRD) > 60 mL/min Glucose 88 (75 - 99) mg/dL Calcium 8.5 L (8.7-10.3) mg/dL Troponin I < 0.04 (0.00-0.070) ng/mL Meds: Medications Generic Name Dose Route Start Last Admin Trade Name Freq PRN Reason Stop Dose Admin Nitroglycerin 0.4 mg 04/25/19 23:10 04/25/19 23:21 Nitrostat SL 0.4 mg Q5M PRN Administration Chest Pain Sodium Chloride 10 ml 04/25/19 23:14 04/25/19 23:22 Saline Flush FLUSH 10 ml Q8HR PRN Administration keep vein open Discontinued Medications Generic Name Dose Route Start Last Admin Trade Name Kerline PRN Reason Stop Dose Admin Aspirin 324 mg 04/25/19 23:10 04/25/19 23:14 Aspirin PO 04/25/19 23:11 324 mg ONETIME ONE Administration Aspirin Confirm 04/25/19 23:08 04/25/19 23:14 Aspirin Administered 04/25/19 23:09 Not Given Dose 324 mg .ROUTE .STK-MED ONE Sodium Chloride 1,000 mls @ 999 mls/hr 04/25/19 23:06 04/25/19 23:15 Normal Saline IV 04/26/19 00:06 999 mls/hr .BOLUS ONE Administration - Re-Assessments/Exams Free Text/Narrative Re-Assessment/Exam: 04/25/19 23:47 Labs are okay. EKG is unchanged from previous. IV fluids are running. Aspirin and a single dose of nitro were given. Patient is feeling a little better from the fluids she thinks. Discussed findings and options. Will see how she feels after fluids are finished. 04/26/19 00:31 Patient is feeling better but not completely back to normal. Discussed case with Rosalio Faria, JOSR who knows her history fairly well. He accepts for admit to observation. A second troponin will be drawn in the morning to confirm but I feel this is very unlikely to be cardiac origin. Patient stable at admit. Departure - Departure Time of Disposition: 00:30 Disposition: Refer to Observation Condition: Good Clinical Impression: Tachycardia, Chest discomfort Forms: ED Department Discharge - My Orders Last 24 Hours: My Active Orders 04/25/19 23:10 Nitroglycerin [Nitrostat] 0.4 mg SL Q5M PRN 04/25/19 23:14 Peripheral IV Care [RC] . DIRECTED Sodium Chloride 0.9% [Saline Flush] 10 ml FLUSH Q8HR PRN Peripheral IV Insertion Adult [OM.PC] Routine 04/25/19 23:15 EKG 12 Lead [EK] Routine 04/25/19 23:16 EKG Documentation Completion [RC] ASDIRECTED 04/26/19 00:24 Patient Status [ADT] Routine 04/26/19 00:27 Patient Status Manage Transfer [TRANSFER] Routine - Assessment/Plan Last 24 Hours: My Active Orders 04/25/19 23:10 Nitroglycerin [Nitrostat] 0.4 mg SL Q5M PRN 04/25/19 23:14 Peripheral IV Care [RC] . DIRECTED Sodium Chloride 0.9% [Saline Flush] 10 ml FLUSH Q8HR PRN Peripheral IV Insertion Adult [OM.PC] Routine 04/25/19 23:15 EKG 12 Lead [EK] Routine 04/25/19 23:16 EKG Documentation Completion [RC] ASDIRECTED 04/26/19 00:24 Patient Status [ADT] Routine 04/26/19 00:27 Patient Status Manage Transfer [TRANSFER] Routine
[2019-04-25 23:38] LABS: CHLORIDE,CL 100 mmol/L (98-115); SODIUM,NA 135 mmol/L (136-145)
[2019-04-26] MEDS ORDERED: Lidocaine 2% 100 MG/5 ML Syringe IVPUSH PRN (06:21)
[2019-04-26] MEDS ORDERED: EPINEPHrine 1:10,000 1 MG/10 ML Syringe IVPUSH PRN (06:21)
[2019-04-26] MEDS ORDERED: Nitroglycerin 0.4 MG Tab.SL SL PRN (06:21)
[2019-04-26] MEDS ORDERED: Atropine 0.1 MG/ML 10 ML Syringe IVPUSH PRN (06:21)
[2019-04-26 06:59] VITALS: BP 93/54; PULSE 54
--- NOTE | 2019-04-26 09:54 | PCM.HP.2 ---
H&P History of Present Illness - General Date of Service: 04/26/19 Admit Problem/Dx: Admission Diagnosis/Problem Admission Diagnosis/Problem Tachycardia Source of Information: Patient, EMS Notes Reviewed History Limitations: Reports: No Limitations - History of Present Illness Initial Comments - Free Text/Narative: Chest heaviness and nausea which started approximately a half hour after she took her medications. She was lying in bed and felt her heart start to race. Got up to check pulse and it was in the 140s, BP was low. Onset of Symptoms: Reports: Sudden Duration of Symptoms: Reports: Recurring Location: Reports: Chest Quality: Reports: Other (heaviness) Improves with: Reports: None Worsens with: Reports: None - Related Data Allergies/Adverse Reactions: Allergies Allergy/AdvReac Type Severity Reaction Status Date / Time sertraline HCl [From Zoloft] Allergy Rash Verified 04/25/19 22:37 Environmental Allergens Allergy Cough Uncoded 04/25/19 22:37 Home Medications: Home Meds Multivitamin [Multivitamins] 1 tab PO DAILY 07/03/13 [History] lamoTRIgine [Lamictal] 250 mg PO BID 07/03/13 [History] Docusate Sodium [Colace] 100 mg PO DAILY 08/31/15 [History] Polyethylene Glycol 3350 [Miralax] 17 gm PO DAILY PRN 08/31/15 [History] Cyanocobalamin (Vitamin B12) [Vitamin B12] 2,500 mcg PO DAILY 03/09/16 [History] ClonazePAM [KlonoPIN] 1 mg PO QID PRN 10/17/16 [History] Fluticasone Propionate [Flonase] 2 spray NASBOTH DAILY 10/17/16 [History] Baclofen 10 mg PO TID PRN 07/20/17 [History] Calc/D3/Mag/Zn/Automotive Technician/[place] [Calcium 600 MG Plus Vit D] 1,200 mg PO DAILY 02/27 [History] Melatonin [Melatin] 9 mg PO BEDTIME 07/20/17 [History] QUEtiapine Fumarate [Seroquel] 900 mg PO BEDTIME 10/05/17 [History] Levothyroxine 112 mcg PO ACBREAKFAST #60 tablet 10/06/17 [Rx] Sennosides/Docusate Sodium [Senna-S] 1 tab PO DAILY 01/31/18 [History] Pantoprazole Sodium [Protonix] 40 mg PO DAILY 09/28/18 [History] Montelukast [Singulair] 10 mg PO DAILY #0 09/29/18 [Rx] Estrogens, Conjugated [Premarin] 1.25 mg PO DAILY 10/17/18 [History] Cetirizine [ZyrTEC] 10 mg PO DAILY 10/27/18 [History] Gabapentin [Neurontin] 300 mg PO BEDTIME 10/27/18 [History] Ondansetron [Zofran ODT] 4 mg PO Q4H PRN 10/27/18 [History] Ranitidine [Zantac] 300 mg PO BEDTIME 10/27/18 [History] Cholecalciferol (Vitamin D3) [Vitamin D3] 50 mcg PO DAILY 04/07/19 [History] Rizatriptan Benzoate [Rizatriptan] 1 tab PO ASDIRECTED PRN 04/25/19 [History] Past Medical History HEENT History: Reports: Allergic Rhinitis, Impaired Vision, Other (See Below) Other HEENT History: Mild nasal septum deviation to the right Cardiovascular History: Reports: Arrhythmia, Hypertension, Other (See Below) Other Cardiovascular History: First-degree AV block Respiratory History: Reports: Intubation, Previous, Pulmonary Fibrosis, Other ( See Below) Other Respiratory History: Chronic left sided lower atelectasis, scarring, and left pleural effusion with borderline pulmonary fibrosis t Gastrointestinal History: Reports: Chronic Constipation, Colon Polyp, GERD, Hemorrhoids, Pancreatitis, Other (See Below) Other Gastrointestinal History: Post operative pancreatitis after gastric bypass surgery and incidental cholecystectomy as below. 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 Surgical menopause secondary to uterine fibroids and dysfunctional uterine bleeding with history of bilateral ovarian cysts Musculoskeletal History: Reports: Arthritis, Back Pain, Chronic, Fracture, Neck Pain, Chronic, Osteoarthritis, Other (See Below) Other Musculoskeletal History: Left Colles' fracture on 07/03/13. Left proximal humeral/greater tuberosity fracture with concomitant rotator cuff tear on . Mild scoliosis Neurological History: Reports: Headaches, Chronic, Neuropathy, Peripheral, Vertigo, Other (See Below) Other Neuro History: Chronic intermittent vertigo with negative MRI of the brain as below Psychiatric History: Reports: Addiction, Anxiety, Bipolar, Depression, Panic Attack, Psych Hospitalization(s), Other (See Below) Other Psychiatric History: Bipolar disorder with multiple previous inpatient hospitalizations. Previous history of chronic narcotic use Endocrine/Metabolic History: Reports: Hypothyroidism Hematologic History: Reports: Anemia, B12 Deficiency, Iron Deficiency Immunologic History: Reports: None Oncologic (Cancer) History: Reports: None Dermatologic History: Reports: Other (See Below) Other Dermatologic History: Occasional tinea - Infectious Disease History Infectious Disease History: Reports: Chicken Pox, Measles, Mumps, Shingles - Past Surgical History Head Surgeries/Procedures: Reports: None HEENT Surgical History: Reports: Adenoidectomy, Oral Surgery, Tonsillectomy, Other (See Below) Other HEENT Surgeries/Procedures: Tonsillectomy and adenoidectomy at age 5. Complete teeth extraction. Nasal septum repair in about 2014 Cardiovascular Surgical History: Reports: None Respiratory Surgical History: Reports: None GI Surgical History: Reports: Bariatric Procedure, Cholecystectomy, Colonoscopy , EGD, Polypectomy Other GI Surgeries/Procedures: Colonoscopy and EGD in about 2013 with polypectomy 6 from the colon at that time with unknown type of colonic polyps. Gastric bypass with concomitant incidental cholecystectomy in about 2004, hemorrhoidectomy 01-12-18 Female Surgical History: Reports: Hysterectomy, Salpingo-Oophorectomy, Other (See Below) Other Female Surgeries/Procedures: Complete hysterectomy with bilateral salpingo-oophorectomy secondary to dysfunctional uterine bleeding, uterine fibroids, and bilateral ovarian cysts on 02/07/14 Neurological Surgical History: Reports: C-Spine, Discectomy, Spinal Fusion, Other (See Below) Other Neurological Surgeries/Procedures: C-spine surgery including spinal fusion and discectomy, level unknown, with cadaver vertebra in her 30s Musculoskeletal Surgical History: Reports: Shoulder Surgery, Other (See Below) Other Musculoskeletal Surgeries/Procedures:: Left Shoulder open surgery including rotator cuff repair in about 2016 - Past Imaging History Past Imaging History: Reports: CAT Scan (CT of the chest on 04/21/17. CT of the abdomen and pelvis with IV contrast on 08/20/17. CT of the sinonasal region on 09/17 and 05/15/14. CT of the left humerus on 09/03/15), MRI (Lumbar spine on . MRI of the left shoulder on 07/20/17. MRI of the brain on 08/13/17), Ultrasound (Ultrasound of the chest in September 2016 with records not available), Other (See Below) (Barium enema on 10/26/13) Social & Family History - Family History Family Medical History: Noncontributory HEENT: Reports: Glaucoma, Other (See Below) Other HEENT Family History: Paternal grandmother with glaucoma Cardiac: Reports: Blood Clots/VTE/DVT, CAD, Heart Murmur, [place], Other (See Below) Other Cardiac Family History: Father with history of DVTs of the legs. Brother with heart murmur secondary to Down syndrome. Maternal grandfather with fatal [place] at age 57 Respiratory: Reports: None GI: Reports: Cholelithiasis, Other (See Below) Other GI Family History: Mother with cholelithiasis : Reports: None OBGYN: Reports: None Musculoskeletal: Reports: None Neurological: Reports: CVA, Seizure, Other (See Below) Other Neurological Family History: Mother with recurrent CVAs initially in her 60s. Maternal grandmother with recurrent CVAs with fatal CVA at age 93. Brother with Down syndrome's with recurrent seizures. Father with recurrent seizures secondary to MVA/head injury Psychiatric: Reports: Anxiety, Depression, Other (See Below) Other Psychiatric Family History: Mother and sisters 3 with anxiety depression disorder Endocrine/Metabolic: Reports: Diabetes, type II, IDDM, Other (See Below) Other Endocrine/Metabolic Family History: Mother with IDDM Hematologic: Reports: None Immunologic: Reports: None Dermatologic: Reports: None Oncologic: Reports: Prostate, Other (See Below) Other Oncologic Family History: Mother with unknown type of fatal cancer in her 70s. Brother with fatal stomach cancer in his 40s. Brother with testicular and prostate cancer in his 40s. 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 Denies: Weakness HEENT: Reports: No Symptoms Pulmonary: Reports: No Symptoms. Denies: Shortness of Breath, Cough Cardiovascular: Reports: No Symptoms. Denies: Chest Pain, Palpitations, Edema Gastrointestinal: Reports: Nausea. Denies: Abdominal Pain Psychiatric: Reports: No Symptoms. Denies: Anxiety, Agitation Neurological: Reports: No Symptoms. Denies: Dizziness, Headache Exam - Exam Exam: See Below - Vital Signs Vital Signs: Last Vital Signs Temp 97.0 F 04/26/19 06:58 Pulse 54 L 04/26/19 06:58 Resp 16 04/26/19 06:58 BP 93/54 L 04/26/19 06:58 Pulse Ox 97 04/26/19 06:58 Weight: 196 lb 3.2 oz - Exam Quality Assessment: No: Supplemental Oxygen General: Alert, Oriented, Cooperative HEENT: Conjunctiva Clear Lungs: Clear to Auscultation. No: Rales, Rhonchi, Wheezing Cardiovascular: Regular Rate, Regular Rhythm, Normal S1, Normal S2 GI/Abdominal Exam: Normal Bowel Sounds, Soft, Non-Tender, No Distention Extremities: No Pedal Edema Skin: Warm, Dry, Intact Psychiatric: Alert, Normal Mood. No: Anxious, Depressed, Agitated - Patient Data Lab Results Last 24 hrs: Laboratory Results - last 24 hr 04/25/19 04/25/19 04/26/19 Range/Units 23:05 23:05 06:00 WBC 5.58 (5.00-10.00) 10^3/uL RBC 3.51 L (3.80-5.50) 10^6/uL Hgb 11.6 L (12.0-16.0) g/dL Hct 33.1 L (37.0-47.0) % MCV 94.3 H (82.0-92.0) fL MCH 33.0 H (27.0-31.0) pg MCHC 35.0 (32.0-36.0) g/dL RDW 12.4 (11.5-14.5) % Plt Count 247 (150-400) 10^3/uL MPV 9.4 (7.4-10.4) fL Immature Gran % (Auto) 0.4 (0.0-5.0) % Neut % (Auto) 44.4 L (50.0-70.0) % Lymph % (Auto) 43.0 H (20.0-40.0) % [place] % (Auto) 10.9 H (2.0-8.0) % Eos % (Auto) 0.9 L (1.0-3.0) % Baso % (Auto) 0.4 (0.0-1.0) % Immature Gran # (Auto) 0.02 (0.00-0.50) 10^3/uL Neut # (Auto) 2.48 L (2.50-7.00) 10^3/uL Lymph # (Auto) 2.40 (1.00-4.00) 10^3/uL [place] # (Auto) 0.61 (0.10-0.80) 10^3/uL Eos # (Auto) 0.05 L (0.10-0.30) 10^3/uL Baso # (Auto) 0.02 (0.00-0.10) 10^3/uL Sodium 135 L (136-145) mmol/L Potassium 3.6 (3.3-5.3) mmol/L Chloride 100 (98-115) mmol/L Carbon Dioxide 27.6 (21.0-32.0) mmol/L Anion Gap 11.0 (5-15) mmol/L BUN 14 (6-25) mg/dL Creatinine 0.70 (0.51-1.17) mg/dL Est Cr Clr Drug Dosing 97.13 mL/min Estimated GFR (MDRD) > 60 mL/min Glucose 88 (75 - 99) mg/dL Calcium 8.5 L (8.7-10.3) mg/dL Troponin I < 0.04 < 0.04 (0.00-0.070) ng/mL Result Diagrams: 04/25/19 23:05 04/25/19 23:05 Problem List Initiated/Reviewed/Updated: Yes Orders Last 24hrs: Active Orders 24 hr Category Date Time Status [place] [RC] ASDIRECTED Care 04/26/19 00:35 Active Vital Signs [RC] 0300,0700,1100,1500,1900,2300 Care 04/26/19 00:35 Active Regular Diet [DIET] Diet 04/26/19 Breakfast Active Atropine [Atropine 0.1 MG/ML] Med 04/26/19 06:21 Active See Dose Instructions IVPUSH ASDIRECTED PRN EPINEPHrine [EPINEPHrine 1:10,000] Med 04/26/19 06:21 Active 1 mg IVPUSH ASDIRECTED PRN Lidocaine 2% [Xylocaine 2%] Med 04/26/19 06:21 Active See Dose Instructions IVPUSH ASDIRECTED PRN Nitroglycerin [Nitrostat] Med 04/26/19 06:21 Active 0.4 mg SL ASDIRECTED PRN Resuscitation Status Stat Resus Stat 04/26/19 00:35 Ordered EKG 12 Lead [EK] Routine Ther 04/25/19 23:15 Ordered Medication Orders Atropine Sulfate (Atropine 0.1 Mg/Ml) 0 mg IVPUSH ASDIRECTED PRN PRN Reason: Heart. Epinephrine HCl (Epinephrine 1:10,000) 1 mg IVPUSH ASDIRECTED PRN PRN Reason: Heart. Lidocaine HCl (Xylocaine 2%) 0 mg IVPUSH ASDIRECTED PRN PRN Reason: Heart. Nitroglycerin (Nitrostat) 0.4 mg SL ASDIRECTED PRN PRN Reason: Heart. Assessment/Plan Comment:: Please use this history and physical as a combined discharge summary as patient was seen same day. History of Present Illness 53-year-old female was admitted into OBS status after midnight last night she presented to the ED complaint Chest heaviness and nausea which started approximately a half hour after she took her medications at approximately 9: 50pm. She was lying in bed and felt her heart start to race. Got up to check pulse and it was in the 140s, BP was low. She took clonazepam at home. This subsided when she arrived at the ED. She does not have a history of previous NJ or cardiac events. This has happened several times within the past month which she has been seen in the ED similialeonie manzano, in which cardiac workup essentially negative and thought to be psychiatric component. While in ED Pulse was 93 upon arrival with BP 118/63. EKG performed upon arrival shows normal sinus rhythm with first degree AV block, which is consistent with baseline. There are no ST-T wave changes and good R wave progression. QTc is prolonged at 521 dramatically prolonged from baseline. Initial troponin in the ED is <0.04. She was given nitro 0.04mg SL at 23:10 and aspirin 324mg orally. There was a subsequent drop in BP after the nitro administration to 86/ 50. She was given a NS IV bolus which she did feel somewhat better. pertinent history having concomitant migraines h/a in which she has been propranolol 60mg. Ethel was admitted in telemetry. Cardiac history: --Nuclear stress test September, (indication: chest pain): no evidence of ischemia --48 hour Holter monitor October,: nonconcerning. Predominantly sinus rhythm, first degree AV block; 0% tachycardia. However, diary entries were recorded on bradycardia, which was present 51% of the time. --ECHO, October 2018: EF 65%, left atrium mildly dilated, normal LV function. She does have severe mitral regurgitation. pertinent ED findings EKG sinus morphology however elongated QTc Initial troponin negative High anxiety state Hypotension at nitroglycerin final diagnosis --R/O [place], this has been ruled out, CAD pretest probability low, low [place], doubtful limited flow disease --Panic disorder vs panic attacks --High anxiety state Hospital course: Patient's hospital course was terse and uneventful. No telemetry concerns overnight. NO S/S of tachycardia. Orthostatics negative. Serialized troponins negative. EKG concerning QTc. Change from October baseline. Nonconcerning electrolytes. Current TSH 2.15. Blood pressures remained low throughout the night, although adequate MAP, asymptomatic. Medication changes/adjustments upon discharge: --Hold propranolol due to hypotension --Continue on all other home medications Disposition/Discharge plan: Patient will be discharged from observation status. She will follow up with PCP 04/27/19 at 9:30am. Long discussion regarding compliance. Will need motivational interviewing techniques to increase compliance regarding psychiatric referral. Recommendations on follow up: --DO NOT RECOMMEND STRESS TEST as low pretest probability of CAD and important to avoid false positives, however, may benefit from an implantable loop recorder. --Recommend cardiology referral --Important to follow up with psychiatry. - Mortality Measure Prognosis:: Good
== END 2019-04-26 11:40 | disposition home or self-care (01) ==
LOC: KA.ED 22:35 → KA.MS 04-26 00:24 → UNDOADMOB 04-26 00:24
PROVIDERS: ADMIT Nurse Practitioner Family; ATTEND Family Medicine
DX: R07.89 Other chest pain (principal); R11.0 Nausea; M19.90 Unspecified osteoarthritis, unspecified site; E03.9 Hypothyroidism, unspecified; I10 Essential (primary) hypertension; K21.9 Gastro-esophageal reflux disease without esophagitis; F41.9 Anxiety disorder, unspecified; F31.9 Bipolar disorder, unspecified; Z88.8 Allergy status to other drugs, medicaments and biological substances; Z79.899 Other long term (current) drug therapy
CPT/HCPCS: 36415; 80048; 84484; 85025; 93005; 96360; 99285-25; A9270-GY; G0378; J7030

== ENCOUNTER 2019-05-22 22:35 | Emergency (ER) | payer BC ==
--- NOTE | 2019-05-22 23:26 | EDM.PDOC ---
ED HPI GENERAL MEDICAL PROBLEM - General Chief Complaint: Behavioral/Psych Stated Complaint: Anxiety attack Time Seen by Provider: 05/22/19 23:05 Source of Information: Reports: Patient History Limitations: Reports: No Limitations - History of Present Illness INITIAL COMMENTS - FREE TEXT/NARRATIVE: 53 YO WF presents to ER complaining of palpitations and anxiety which began tonight after lying down for bed. Pt reports these are similar to her previous episodes which she's been seen for in ER multiple times. Pt was recently seen and admitted to hospital less than 1 month ago for similar and had a full cardiac workup which revealed no evidence of cardiovascular abnormalities. Pt has history of anxiety/panic attacks and has recently began to have more frequent episodes. Pt was taking clonazepam before bedtime but was recently switched to Lorazepam QID which pt reports she took at approximately 10pm tonight. Pt states she began to feel anxious and developed these palpitations which lasted approximately 30 minutes and have since resolved. Pt is worried she will continue to have these attacks. Pt states she is also worried about her husbands health. Pt is alert and oriented x 4. Pt denies any SI/HI ideation. Pt denies AH/VH. Duration: Chronic, Waxing/Waning Location: Reports: Generalized Severity: Mild Improves with: Reports: None Worsens with: Reports: None Associated Symptoms: Reports: Nausea/Vomiting. Denies: Chest Pain, Diaphoresis , Loss of Appetite, Malaise, Shortness of Breath, Syncope, Weakness Head Pain Score (Numeric/FACES): 2 - Related Data Allergies Allergy/AdvReac Type Severity Reaction Status Date / Time sertraline HCl [From Zoloft] Allergy Intermediate Rash Verified 05/22/19 23:11 Environmental Allergens Allergy Cough Uncoded 04/25/19 22:37 Home Meds: Home Meds Multivitamin [Multivitamins] 1 tab PO DAILY 07/03/13 [History] lamoTRIgine [Lamictal] 250 mg PO BID 07/03/13 [History] Docusate Sodium [Colace] 100 mg PO DAILY 08/31/15 [History] Polyethylene Glycol 3350 [Miralax] 17 gm PO DAILY PRN 08/31/15 [History] Cyanocobalamin (Vitamin B12) [Vitamin B12] 2,500 mcg PO DAILY 03/09/16 [History] ClonazePAM [KlonoPIN] 1 mg PO QID PRN 10/17/16 [History] Fluticasone Propionate [Flonase] 2 spray NASBOTH DAILY 10/17/16 [History] Baclofen 10 mg PO TID PRN 07/20/17 [History] Calc/D3/Mag/Zn/Float Remover/Gamal/[place] [Calcium 600 MG Plus Vit D] 1,200 mg PO DAILY 02/27 [History] Melatonin [Melatin] 9 mg PO BEDTIME 07/20/17 [History] QUEtiapine Fumarate [Seroquel] 900 mg PO BEDTIME 10/05/17 [History] Levothyroxine 112 mcg PO ACBREAKFAST #60 tablet 10/06/17 [Rx] Sennosides/Docusate Sodium [Senna-S] 1 tab PO DAILY 01/31/18 [History] Pantoprazole Sodium [Protonix] 40 mg PO DAILY 09/28/18 [History] Montelukast [Singulair] 10 mg PO DAILY #0 09/29/18 [Rx] Estrogens, Conjugated [Premarin] 1.25 mg PO DAILY 10/17/18 [History] Cetirizine [ZyrTEC] 10 mg PO DAILY 10/27/18 [History] Gabapentin [Neurontin] 300 mg PO BEDTIME 10/27/18 [History] Ondansetron [Zofran ODT] 4 mg PO Q4H PRN 10/27/18 [History] Ranitidine [Zantac] 300 mg PO BEDTIME 10/27/18 [History] Cholecalciferol (Vitamin D3) [Vitamin D3] 50 mcg PO DAILY 04/07/19 [History] Rizatriptan Benzoate [Rizatriptan] 1 tab PO ASDIRECTED PRN 04/25/19 [History] Past Medical History HEENT History: Reports: Allergic Rhinitis, Impaired Vision, Other (See Below) Other HEENT History: Mild nasal septum deviation to the right Cardiovascular History: Reports: Arrhythmia, Hypertension, Other (See Below) Other Cardiovascular History: First-degree AV block Respiratory History: Reports: Intubation, Previous, Pulmonary Fibrosis, Other ( See Below) Other Respiratory History: Chronic left sided lower atelectasis, scarring, and left pleural effusion with borderline pulmonary fibrosis t Gastrointestinal History: Reports: Chronic Constipation, Colon Polyp, GERD, Hemorrhoids, Pancreatitis, Other (See Below) Other Gastrointestinal History: Post operative pancreatitis after gastric bypass surgery and incidental cholecystectomy as below. Previous external hemorrhoidectomy 2 Genitourinary History: Reports: UTI, Recurrent [employer] History: Reports: Dysfunctional Uterine Bleeding, Fibroids, Other [employer] History: Full term without complications during pregnancies or deliveries. Surgical menopause secondary to uterine fibroids and dysfunctional uterine bleeding with history of bilateral ovarian cysts Musculoskeletal History: Reports: Arthritis, Back Pain, Chronic, Fracture, Neck Pain, Chronic, Osteoarthritis, Other (See Below) Other Musculoskeletal History: Left Colles' fracture on 07/03/13. Left proximal humeral/greater tuberosity fracture with concomitant rotator cuff tear on . Mild scoliosis Neurological History: Reports: Headaches, Chronic, Neuropathy, Peripheral, Vertigo, Other (See Below) Other Neuro History: Chronic intermittent vertigo with negative MRI of the brain as below Psychiatric History: Reports: Addiction, Anxiety, Bipolar, Depression, Panic Attack, Psych Hospitalization(s), Other (See Below) Other Psychiatric History: Bipolar disorder with multiple previous inpatient hospitalizations. Previous history of chronic narcotic use Endocrine/Metabolic History: Reports: Hypothyroidism Hematologic History: Reports: Anemia, B12 Deficiency, Iron Deficiency Immunologic History: Reports: None Oncologic (Cancer) History: Reports: None Dermatologic History: Reports: Other (See Below) Other Dermatologic History: Occasional tinea - Infectious Disease History Infectious Disease History: Reports: Chicken Pox, Measles, Mumps, Shingles - Past Surgical History Head Surgeries/Procedures: Reports: None HEENT Surgical History: Reports: Adenoidectomy, Oral Surgery, Tonsillectomy, Other (See Below) Other HEENT Surgeries/Procedures: Tonsillectomy and adenoidectomy at age 5. Complete teeth extraction. Nasal septum repair in about 2014 Cardiovascular Surgical History: Reports: None Respiratory Surgical History: Reports: None GI Surgical History: Reports: Bariatric Procedure, Cholecystectomy, Colonoscopy , EGD, Polypectomy Other GI Surgeries/Procedures: Colonoscopy and EGD in about 2013 with polypectomy 6 from the colon at that time with unknown type of colonic polyps. Gastric bypass with concomitant incidental cholecystectomy in about 2004, hemorrhoidectomy 18 Female Surgical History: Reports: Hysterectomy, Salpingo-Oophorectomy, Other (See Below) Other Female Surgeries/Procedures: Complete hysterectomy with bilateral salpingo-oophorectomy secondary to dysfunctional uterine bleeding, uterine fibroids, and bilateral ovarian cysts on 02/07/14 Neurological Surgical History: Reports: C-Spine, Discectomy, Spinal Fusion, Other (See Below) Other Neurological Surgeries/Procedures: C-spine surgery including spinal fusion and discectomy, level unknown, with cadaver vertebra in her 30s Musculoskeletal Surgical History: Reports: Shoulder Surgery, Other (See Below) Other Musculoskeletal Surgeries/Procedures:: Left Shoulder open surgery including rotator cuff repair in about 2016 - Past Imaging History Past Imaging History: Reports: CAT Scan (CT of the chest on 04/21/17. CT of the abdomen and pelvis with IV contrast on 08/20/17. CT of the sinonasal region on 09/17 and 05/15/14. CT of the left humerus on 09/03/15), MRI (Lumbar spine on . MRI of the left shoulder on 07/20/17. MRI of the brain on 08/13/17), Ultrasound (Ultrasound of the chest in September 2016 with records not available), Other (See Below) (Barium enema on 10/26/13) Social & Family History - Family History Family Medical History: Noncontributory HEENT: Reports: Glaucoma, Other (See Below) Other HEENT Family History: Paternal grandmother with glaucoma Cardiac: Reports: Blood Clots/VTE/DVT, CAD, Heart Murmur, IN, Other (See Below) Other Cardiac Family History: Father with history of DVTs of the legs. Brother with heart murmur secondary to Down syndrome. Maternal grandfather with fatal IN at age 57 Respiratory: Reports: None GI: Reports: Cholelithiasis, Other (See Below) Other GI Family History: Mother with cholelithiasis : Reports: None OBGYN: Reports: None Musculoskeletal: Reports: None Neurological: Reports: CVA, Seizure, Other (See Below) Other Neurological Family History: Mother with recurrent CVAs initially in her 60s. Maternal grandmother with recurrent CVAs with fatal CVA at age 93. Brother with Down syndrome's with recurrent seizures. Father with recurrent seizures secondary to MVA/head injury Psychiatric: Reports: Anxiety, Depression, Other (See Below) Other Psychiatric Family History: Mother and sisters 3 with anxiety depression disorder Endocrine/Metabolic: Reports: Diabetes, type II, IDDM, Other (See Below) Other Endocrine/Metabolic Family History: Mother with IDDM Hematologic: Reports: None Immunologic: Reports: None Dermatologic: Reports: None Oncologic: Reports: Prostate, Other (See Below) Other Oncologic Family History: Mother with unknown type of fatal cancer in her 70s. Brother with fatal stomach cancer in his 40s. Brother with testicular and prostate cancer in his 40s. 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 Denies: Homicidal Ideation, Mood Lability, Suicidal Ideation Hematologic/Lymphatic: Reports: No Symptoms Immunologic: Reports: No Symptoms ED EXAM, GENERAL - Physical Exam Exam: See Below Exam Limited By: No Limitations General Appearance: Alert, WD/WN, No Apparent Distress, Anxious Eye Exam: Bilateral Eye: PERRL Head: Atraumatic, Normocephalic Neck: Normal Inspection, Supple, Non-Tender, Full Range of Motion Respiratory/Chest: No Respiratory Distress, Lungs Clear, Normal Breath Sounds, No Accessory Muscle Use, Chest Non-Tender Cardiovascular: Normal Peripheral Pulses, Regular Rate, Rhythm, No Edema, No Gallop, No JVD, No Murmur, No Rub GI/Abdominal: Normal Bowel Sounds, Soft, Non-Tender, No Organomegaly, No Distention, No Abnormal Bruit, No Mass Back Exam: Normal Inspection, Full Range of Motion, NT Extremities: Normal Inspection, Normal Range of Motion, Non-Tender, Normal Capillary Refill, No Pedal Edema Neurological: Alert, Oriented, CN II-XII Intact, Normal Cognition, Normal Gait, Normal Reflexes, No Motor/Sensory Deficits Psychiatric: Normal Affect, Anxious, Depressed Mood Skin Exam: Warm, Dry, Intact, Normal Color, No Rash Lymphatic: No Adenopathy EKG INTERPRETATION EKG Date: 05/22/19 Time: 22:58 Rhythm: NSR Rate (Beats/Min): 90 Frederic: Normal P-Wave: Present QRS: Normal ST-T: Normal QT: Normal Comparison: No Change Course - Vital Signs Last Recorded V/S: Last Vital Signs Temp 35.8 C 05/22/19 23:09 Pulse 86 05/22/19 23:30 Resp 18 05/22/19 23:09 BP 102/66 05/22/19 23:30 Pulse Ox 98 05/22/19 23:09 Orthostatic Blood Pressure [ 95/43 Supine] - Orders/Labs/Meds Orders: Active Orders 24 hr Category Date Time Status EKG Documentation Completion [RC] ASDIRECTED Care 05/22/19 23:13 Active Orthostatic Vital Signs [RC] ASDIRECTED Care 05/22/19 23:45 Active Sodium Chloride 0.9% [Normal Saline] 1,000 ml Med 05/22/19 23:45 Active IV .BOLUS EKG 12 Lead [EK] Routine Ther 05/22/19 23:12 Ordered Medication Orders Sodium Chloride (Normal Saline) 1,000 mls @ 999 mls/hr IV .BOLUS ONE Stop: 05/23/19 00:45 Last Admin: 05/23/19 00:02 Dose: 999 mls/hr Meds: Medications Generic Name Dose Route Start Last Admin Trade Name Freq PRN Reason Stop Dose Admin Sodium Chloride 1,000 mls @ 999 mls/hr 05/22/19 23:45 05/23/19 00:02 Normal Saline IV 05/23/19 00:45 999 mls/hr .BOLUS ONE Administration Discontinued Medications Generic Name Dose Route Start Last Admin Trade Name Freq PRN Reason Stop Dose Admin Lorazepam 1 mg 05/23/19 00:26 05/23/19 00:37 Ativan IVPUSH 05/23/19 00:27 1 mg ONETIME ONE Administration Departure - Departure Time of Disposition: 00:43 Disposition: Home, Self-Care 01 Condition: Good Clinical Impression: Panic disorder - Discharge Information Instructions: Panic Attack, [id number], Palpitations Forms: ED Department Discharge, ED Return to Work/School Form Additional Instructions: 1. discharge home 3. follow up with PCP for further evaluation and management of her panic/ anxiety attacks 4. recommended pt follow up with psychiatrist for management of her medications and mental health 5. return to ER for worsening symptoms - My Orders Last 24 Hours: My Active Orders 05/22/19 23:12 EKG 12 Lead [EK] Routine 05/22/19 23:13 EKG Documentation Completion [RC] ASDIRECTED 05/22/19 23:45 Orthostatic Vital Signs [RC] ASDIRECTED Sodium Chloride 0.9% [Normal Saline] 1,000 ml IV .BOLUS - Assessment/Plan Last 24 Hours: My Active Orders 05/22/19 23:12 EKG 12 Lead [EK] Routine 05/22/19 23:13 EKG Documentation Completion [RC] ASDIRECTED 05/22/19 23:45 Orthostatic Vital Signs [RC] ASDIRECTED Sodium Chloride 0.9% [Normal Saline] 1,000 ml IV .BOLUS Assessment:: 1. Anxiety/panic attack 2. orthostatic hypotension Plan: 1. discharge home 2. Pt states she feels better and would like to go home 3. follow up with PCP for further evaluation and management of her panic/ anxiety attacks 4. recommended pt follow up with psychiatrist for management of her medications and mental health 5. return to ER for worsening symptoms
[2019-05-23] MEDS: Sodium Chloride 0.9% 1,000 ML IV ONE (00:02)
[2019-05-23] MEDS: LORazepam 2 MG/ML SDV IVPUSH ONE (00:37)
[2019-05-23 01:12] VITALS: BP 103/47; PULSE 61
== END 2019-05-23 01:00 | disposition home or self-care (01) ==
LOC: KA.ED 22:35
DX: F41.0 Panic disorder [episodic paroxysmal anxiety] (principal); I10 Essential (primary) hypertension; Z79.899 Other long term (current) drug therapy; Z88.8 Allergy status to other drugs, medicaments and biological substances; Z91.09 Other allergy status, other than to drugs and biological substances
CPT/HCPCS: 93005; 96361; 96374; 99285-25; J2060; J7030

== ENCOUNTER 2019-09-11 00:12 | Emergency (ER) | payer BC ==
[2019-09-11] MEDS ORDERED: Aspirin 81 MG Tab.Chew PO ONE (00:38)
[2019-09-11] MEDS ORDERED: Alum Hydrox/Mag Hydrox/Simeth 30 ML, Lidocaine 2% 15 ML PO ONE ×2 (00:39)
[2019-09-11] MEDS ORDERED: Ondansetron 4 MG/2 ML SDV IVPUSH ONE (00:39)
[2019-09-11 01:29] LABS: ANION GAP 15.5 mmol/L (5-15); CHLORIDE,CL 103 mmol/L (98-115); SODIUM,NA 139 mmol/L (136-145)
[2019-09-11] MEDS ORDERED: Omeprazole 20 MG Cap.CR PO ONE (01:43)
[2019-09-11] MEDS: Omeprazole 2 MG/ML 150 ML Kit PO ONE (02:04)
--- NOTE | 2019-09-11 02:26 | EDM.PDOC ---
ED HPI GENERAL MEDICAL PROBLEM - General Chief Complaint: General Stated Complaint: heratburn Time Seen by Provider: 09/11/19 00:35 Source of Information: Reports: Patient History Limitations: Reports: No Limitations - History of Present Illness INITIAL COMMENTS - FREE TEXT/NARRATIVE: It 54-year-old female presents emergency room with complaints of epigastric pain and nausea. She took some Rolaids for her symptoms at approximately 9:30 this evening. She has history of bipolar and anxiety disorder. She does not take anything for her anxiety as she feels does not want to get addicted to her diazepam. She does feel mildly anxious today. She does have a history of chronic reflux. She takes Protonix. She's had gastric bypass in the past and also has had pancreatitis in the past. He denies any lower abdominal complaints. No dysuria or hematuria. No diarrhea or constipation. She's not been diaphoretic. She was given aspirin upon arrival and an EKG was ordered. EKG showed first-degree AV block and possible anterior infarct this is unchanged from her prior EKG in May. Lab work was drawn including a troponin. A GI cocktail was ordered for the patient which she initially did not want to take as it makes her gag. Onset: Today Onset Date: 09/10/19 Onset Time: 21:00 Duration: Hour(s):, Waxing/Waning Location: Reports: Abdomen Quality: Reports: Burning Severity: Moderate Improves with: Reports: None Worsens with: Reports: None Associated Symptoms: Reports: Nausea/Vomiting. Denies: Chest Pain, Diaphoresis , Fever/Chills, Shortness of Breath - Related Data Allergies Allergy/AdvReac Type Severity Reaction Status Date / Time sertraline HCl [From Zoloft] Allergy Intermediate Rash Verified 09/11/19 00:14 Environmental Allergens Allergy Cough Uncoded 04/25/19 22:37 Home Meds: Home Meds Multivitamin [Multivitamins] 1 tab PO DAILY 07/03/13 [History] lamoTRIgine [Lamictal] 250 mg PO BID 07/03/13 [History] Docusate Sodium [Colace] 100 mg PO DAILY 08/31/15 [History] Polyethylene Glycol 3350 [Miralax] 17 gm PO DAILY PRN 08/31/15 [History] Cyanocobalamin (Vitamin B12) [Vitamin B12] 2,500 mcg PO DAILY 03/09/16 [History] Fluticasone Propionate [Flonase] 2 spray NASBOTH DAILY 10/17/16 [History] Baclofen 10 mg PO TID PRN 07/20/17 [History] Calc/D3/Mag/Zn/[place] [Calcium 600 MG Plus Vit D] 1,200 mg PO DAILY 02/27 [History] Melatonin [Melatin] 9 mg PO BEDTIME 07/20/17 [History] QUEtiapine Fumarate [Seroquel] 900 mg PO BEDTIME 10/05/17 [History] Levothyroxine 112 mcg PO ACBREAKFAST #60 tablet 10/06/17 [Rx] Sennosides/Docusate Sodium [Senna-S] 1 tab PO DAILY 01/31/18 [History] Pantoprazole Sodium [Protonix] 40 mg PO DAILY 09/28/18 [History] Montelukast [Singulair] 10 mg PO DAILY #0 09/29/18 [Rx] Estrogens, Conjugated [Premarin] 1.25 mg PO DAILY 10/17/18 [History] Cetirizine [ZyrTEC] 10 mg PO DAILY 10/27/18 [History] Ondansetron [Zofran ODT] 4 mg PO Q4H PRN 10/27/18 [History] Ranitidine [Zantac] 300 mg PO BEDTIME 10/27/18 [History] Cholecalciferol (Vitamin D3) [Vitamin D3] 50 mcg PO DAILY 04/07/19 [History] Rizatriptan Benzoate [Rizatriptan] 1 tab PO ASDIRECTED PRN 04/25/19 [History] Escitalopram [Lexapro] 10 mg PO DAILY 09/11/19 [History] Past Medical History HEENT History: Reports: Allergic Rhinitis, Impaired Vision, Other (See Below) Other HEENT History: Mild nasal septum deviation to the right Cardiovascular History: Reports: Arrhythmia, Hypertension, Other (See Below) Other Cardiovascular History: First-degree AV block Respiratory History: Reports: Intubation, Previous, Pulmonary Fibrosis, Other ( See Below) Other Respiratory History: Chronic left sided lower atelectasis, scarring, and left pleural effusion with borderline pulmonary fibrosis t Gastrointestinal History: Reports: Chronic Constipation, Colon Polyp, GERD, Hemorrhoids, Pancreatitis, Other (See Below) Other Gastrointestinal History: Post operative pancreatitis after gastric bypass surgery and incidental cholecystectomy as below. 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 Surgical menopause secondary to uterine fibroids and dysfunctional uterine bleeding with history of bilateral ovarian cysts Musculoskeletal History: Reports: Arthritis, Back Pain, Chronic, Fracture, Neck Pain, Chronic, Osteoarthritis, Other (See Below) Other Musculoskeletal History: Left Colles' fracture on 07/03/13. Left proximal humeral/greater tuberosity fracture with concomitant rotator cuff tear on . Mild scoliosis Neurological History: Reports: Headaches, Chronic, Neuropathy, Peripheral, Vertigo, Other (See Below) Other Neuro History: Chronic intermittent vertigo with negative MRI of the brain as below Psychiatric History: Reports: Addiction, Anxiety, Bipolar, Depression, Panic Attack, Psych Hospitalization(s), Other (See Below) Other Psychiatric History: Bipolar disorder with multiple previous inpatient hospitalizations. Previous history of chronic narcotic use Endocrine/Metabolic History: Reports: Hypothyroidism Hematologic History: Reports: Anemia, B12 Deficiency, Iron Deficiency Immunologic History: Reports: None Oncologic (Cancer) History: Reports: None Dermatologic History: Reports: Other (See Below) Other Dermatologic History: Occasional tinea - Infectious Disease History Infectious Disease History: Reports: Chicken Pox, Measles, Mumps, Shingles - Past Surgical History Head Surgeries/Procedures: Reports: None HEENT Surgical History: Reports: Adenoidectomy, Oral Surgery, Tonsillectomy, Other (See Below) Other HEENT Surgeries/Procedures: Tonsillectomy and adenoidectomy at age 5. Complete teeth extraction. Nasal septum repair in about 2014 Cardiovascular Surgical History: Reports: None Respiratory Surgical History: Reports: None GI Surgical History: Reports: Bariatric Procedure, Cholecystectomy, Colonoscopy , EGD, Polypectomy Other GI Surgeries/Procedures: Colonoscopy and EGD in about 2013 with polypectomy 6 from the colon at that time with unknown type of colonic polyps. Gastric bypass with concomitant incidental cholecystectomy in about 2004, hemorrhoidectomy 01-12-18 Female Surgical History: Reports: Hysterectomy, Salpingo-Oophorectomy, Other (See Below) Other Female Surgeries/Procedures: Complete hysterectomy with bilateral salpingo-oophorectomy secondary to dysfunctional uterine bleeding, uterine fibroids, and bilateral ovarian cysts on 02/07/14 Neurological Surgical History: Reports: C-Spine, Discectomy, Spinal Fusion, Other (See Below) Other Neurological Surgeries/Procedures: C-spine surgery including spinal fusion and discectomy, level unknown, with cadaver vertebra in her 30s Musculoskeletal Surgical History: Reports: Shoulder Surgery, Other (See Below) Other Musculoskeletal Surgeries/Procedures:: Left Shoulder open surgery including rotator cuff repair in about 2016 - Past Imaging History Past Imaging History: Reports: CAT Scan (CT of the chest on 04/21/17. CT of the abdomen and pelvis with IV contrast on 08/20/17. CT of the sinonasal region on 09/17 and 05/15/14. CT of the left humerus on 09/03/15), MRI (Lumbar spine on . MRI of the left shoulder on 07/20/17. MRI of the brain on 08/13/17), Ultrasound (Ultrasound of the chest in September 2016 with records not available), Other (See Below) (Barium enema on 10/26/13) Social & Family History - Family History Family Medical History: Noncontributory HEENT: Reports: Glaucoma, Other (See Below) Other HEENT Family History: Paternal grandmother with glaucoma Cardiac: Reports: Blood Clots/VTE/DVT, CAD, Heart Murmur, [place], Other (See Below) Other Cardiac Family History: Father with history of DVTs of the legs. Brother with heart murmur secondary to Down syndrome. Maternal grandfather with fatal KS at age 57 Respiratory: Reports: None GI: Reports: Cholelithiasis, Other (See Below) Other GI Family History: Mother with cholelithiasis : Reports: None OBGYN: Reports: None Musculoskeletal: Reports: None Neurological: Reports: CVA, Seizure, Other (See Below) Other Neurological Family History: Mother with recurrent CVAs initially in her 60s. Maternal grandmother with recurrent CVAs with fatal CVA at age 93. Brother with Down syndrome's with recurrent seizures. Father with recurrent seizures secondary to MVA/head injury Psychiatric: Reports: Anxiety, Depression, Other (See Below) Other Psychiatric Family History: Mother and sisters 3 with anxiety depression disorder Endocrine/Metabolic: Reports: Diabetes, type II, IDDM, Other (See Below) Other Endocrine/Metabolic Family History: Mother with IDDM Hematologic: Reports: None Immunologic: Reports: None Dermatologic: Reports: None Oncologic: Reports: Prostate, Other (See Below) Other Oncologic Family History: Mother with unknown type of fatal cancer in her 70s. Brother with fatal stomach cancer in his 40s. Brother with testicular and prostate cancer in his 40s. 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 Denies: Vomiting : Reports: No Symptoms Musculoskeletal: Reports: No Symptoms Skin: Reports: No Symptoms Neurological: Reports: No Symptoms Psychiatric: Reports: Anxiety, Depression, Other (Bipolar disorder). Denies: Hallucinations, Homicidal Ideation, Suicidal Ideation Hematologic/Lymphatic: Reports: No Symptoms Immunologic: Reports: No Symptoms ED EXAM, GI/ABD - Physical Exam Exam: See Below General Appearance: Alert, WD/WN, No Apparent Distress, Anxious Eyes: Bilateral: EOMI Ears: Hearing Grossly Normal Nose: Normal Inspection Throat/Mouth: Normal Inspection, Normal Voice, No Airway Compromise Head: Atraumatic, Normocephalic Neck: Normal Inspection, Supple, Non-Tender, Full Range of Motion Respiratory/Chest: No Respiratory Distress, Lungs Clear, Normal Breath Sounds Cardiovascular: Normal Peripheral Pulses, Regular Rate, Rhythm GI/Abdominal Exam: Normal Bowel Sounds, Soft, Non-Tender, No Organomegaly, No Distention, No Mass Back Exam: Normal Inspection, Full Range of Motion Extremities: Normal Inspection, Normal Range of Motion, Non-Tender, No Pedal Edema, Normal Capillary Refill Neurological: Alert, Oriented, No Motor/Sensory Deficits Psychiatric: Anxious, Depressed Mood Skin Exam: Warm, Dry, Intact, Normal Color, No Rash Lymphatic: No Adenopathy EKG INTERPRETATION EKG Date: 09/11/19 Time: 00:25 Rhythm: Other (Sinus rhythm with first-degree AV block) Rate (Beats/Min): 79 [place]: Normal P-Wave: Present QRS: Normal ST-T: Normal QT: Normal Comparison: No Change (05/2019) EKG Interpretation Comments: Sinus rhythm with first-degree AV block, possible left atrial enlargement, possible anterior infarct age undetermined, abnormal ECG Unchanged from prior EKG in May 2019 Course - Vital Signs Last Recorded V/S: Last Vital Signs Temp 97.4 F 09/11/19 00:20 Pulse 58 L 09/11/19 01:53 Resp 18 09/11/19 00:20 BP 112/58 L 09/11/19 01:53 Pulse Ox 97 09/11/19 00:20 - Orders/Labs/Meds Orders: Active Orders 24 hr Category Date Time Status EKG Documentation Completion [RC] ASDIRECTED Care 09/11/19 00:42 Active EKG 12 Lead [EK] Routine Ther 09/11/19 00:42 Ordered Labs: Laboratory Tests 09/11/19 09/11/19 Range/Units 00:30 00:30 WBC 4.86 L (5.00-10.00) 10^3/uL RBC 3.82 (3.80-5.50) 10^6/uL Hgb 11.4 L (12.0-16.0) g/dL Hct 35.3 L (37.0-47.0) % MCV 92.4 H (82.0-92.0) fL MCH 29.8 (27.0-31.0) pg MCHC 32.3 (32.0-36.0) g/dL RDW 13.3 (11.5-14.5) % Plt Count 273 (150-400) 10^3/uL MPV 9.1 (7.4-10.4) fL Immature Gran % (Auto) 0.2 (0.0-5.0) % Neut % (Auto) 50.9 (50.0-70.0) % Lymph % (Auto) 36.8 (20.0-40.0) % [place] % (Auto) 9.9 H (2.0-8.0) % Eos % (Auto) 1.4 (1.0-3.0) % Baso % (Auto) 0.8 (0.0-1.0) % Immature Gran # (Auto) 0.01 (0.00-0.50) 10^3/uL Neut # (Auto) 2.47 L (2.50-7.00) 10^3/uL Lymph # (Auto) 1.79 (1.00-4.00) 10^3/uL [place] # (Auto) 0.48 (0.10-0.80) 10^3/uL Eos # (Auto) 0.07 L (0.10-0.30) 10^3/uL Baso # (Auto) 0.04 (0.00-0.10) 10^3/uL Sodium 139 (136-145) mmol/L Potassium 3.7 (3.3-5.3) mmol/L Chloride 103 (98-115) mmol/L Carbon Dioxide 24.2 (21.0-32.0) mmol/L Anion Gap 15.5 H (5-15) mmol/L BUN 14 (6-25) mg/dL Creatinine 0.62 (0.51-1.17) mg/dL Est Cr Clr Drug Dosing 104.64 mL/min Estimated GFR (MDRD) > 60 mL/min Glucose 122 H (75 - 99) mg/dL Calcium 8.2 L (8.7-10.3) mg/dL Total Bilirubin 0.1 L (0.2-1.0) mg/dL AST 20 (15-37) U/L ALT 22 (12-78) U/L Alkaline Phosphatase 99 (46-116) IU/L Troponin I 0.06 (0.00-0.070) ng/mL Total Protein 6.0 L (6.4-8.2) g/dL Albumin 3.02 (3.00-4.80) g/dL Amylase 98 (25-125) U/L Lipase 116 (73-393) U/L Meds: Medications Discontinued Medications Generic Name Dose Route Start Last Admin Trade Name Freq PRN Reason Stop Dose Admin Aspirin 324 mg 09/11/19 00:38 09/11/19 00:51 Aspirin PO 09/11/19 00:39 324 mg ONETIME ONE Administration Al Hydroxide/Mg Hydroxide 30 0 ml 09/11/19 00:39 09/11/19 01:22 ml/ Lidocaine HCl 15 ml PO 09/11/19 00:40 45 ml ONETIME ONE Administration Diazepam 2 mg 09/11/19 01:30 09/11/19 01:36 Valium IVPUSH 09/11/19 01:31 2 mg ONETIME ONE Administration Omeprazole 1 each 09/11/19 01:43 09/11/19 02:04 First-Omeprazole PO 09/11/19 01:44 20 mg ONETIME ONE Administration Ondansetron HCl 4 mg 09/11/19 00:39 09/11/19 00:49 Zofran IVPUSH 09/11/19 00:40 4 mg ONETIME ONE Administration - Re-Assessments/Exams Free Text/Narrative Re-Assessment/Exam: 09/11/19 02:32 Patient feels better after giving a GI cocktail and 2 mg of IV Valium 09/11/19 02:42 Troponin level was normal Departure - Departure Time of Disposition: 02:32 Disposition: Home, Self-Care 01 Condition: Good Clinical Impression: Chronic GERD, Generalized anxiety disorder with panic attacks - Discharge Information Instructions: Generalized Anxiety Disorder, Adult Forms: ED Department Discharge Sepsis Event Note - Evaluation Sepsis Screening Result: No Definite Risk - Focused Exam Vital Signs: Vital Signs Temp Pulse Resp BP Pulse Ox 09/11/19 01:53 58 L 112/58 L 09/11/19 01:00 66 111/56 L 09/11/19 00:20 97.4 F 88 18 115/50 L 97 Date Exam was Performed: 09/11/19 Time Exam was Performed: 02:20 - My Orders Last 24 Hours: My Active Orders 09/11/19 00:42 EKG Documentation Completion [RC] ASDIRECTED EKG 12 Lead [EK] Routine - Assessment/Plan Last 24 Hours: My Active Orders 09/11/19 00:42 EKG Documentation Completion [RC] ASDIRECTED EKG 12 Lead [EK] Routine Assessment:: 1. GERD chronic 2. Generalized anxiety with panic attack Plan: 1. Recommend patient follow up with her primary care in 1 week. She has discontinued her diazepam. She was seen in May for a panic attack. Month prior she also had a workup which she was admitted for for cardiac rule out which ultimately had no underlying cardiac findings. She had only taken Rolaids prior to arrival. She had improvement with omeprazole and a GI cocktail. Her troponin was normal. Her EKG was unchanged from prior was no evidence of a STEMI. 2. She has recurrent chest pain or symptoms encourage her to follow-up in the emergency room. 3. Patient should resume her regular home medications.
[2019-09-11 02:32] VITALS: BP 114/53; PULSE 62
[2019-09-12] MEDS: Omeprazole 2 MG/ML 150 ML Kit PO ONE (13:23)
== END 2019-09-11 02:20 | disposition home or self-care (01) ==
LOC: KA.ED 00:12
DX: K21.9 Gastro-esophageal reflux disease without esophagitis (principal); F41.0 Panic disorder [episodic paroxysmal anxiety]; Z88.8 Allergy status to other drugs, medicaments and biological substances; Z79.899 Other long term (current) drug therapy; Z91.048 Other nonmedicinal substance allergy status
CPT/HCPCS: 80053; 82150; 83690; 84484; 85025; 93005; 96374; 96375; 99284; A9270; J2405; J3360

== ENCOUNTER 2023-08-11 11:59 | Emergency (ER) | payer BC ==
[2023-08-11 12:37] LABS: BASOPHILS ABSOLUTE AUTO 0.05 10^3/uL (0.00-0.10); HEMATOCRIT 41.3 % (37.0-47.0); HEMOGLOBIN 13.4 g/dL (12.0-16.0); IMMATURE GRAN ABSOLUTE AUTO 0.02 10^3/uL (0.00-0.50); IMMATURE GRAN PERCENT AUTO 0.4 % (0.0-5.0); LYMPHOCYTES ABSOLUTE AUTO 1.29 10^3/uL (1.00-4.00); MEAN CORPUSCULAR HEMOGLOBIN 31.5 pg (27.0-31.0); MEAN CORPUSCULAR HGB CONC 32.4 g/dL (32.0-36.0); MEAN CORPUSCULAR VOLUME 96.9 fL (82.0-92.0); MEAN PLATELET VOLUME 9.8 fL (7.4-10.4); MONOCYTES ABSOLUTE AUTO 0.55 10^3/uL (0.10-0.80); MONOCYTES PERCENT AUTO 11.1 % (2.0-8.0); NEUTROPHILS ABSOLUTE AUTO 2.96 10^3/uL (2.50-7.00); NEUTROPHILS PERCENT AUTO 59.5 % (50.0-70.0); PLATELET COUNT,PLT 291 10^3/uL (150-400); RED BLOOD CELL COUNT 4.26 10^6/uL (3.80-5.50); RED CELL DISTRIBUTION WIDTH 12.5 % (11.5-14.5); WHITE BLOOD CELL COUNT,WBC 4.97 10^3/uL (5.00-10.00)
[2023-08-11 12:38] VITALS: PULSE 70
[2023-08-11] MEDS: LORazepam 2 MG/ML SDV IM ONE (12:40)
[2023-08-11 12:44] LABS: APPEARANCE,URINE CLEAR (CLEAR); BILIRUBIN,URINE NEGATIVE (NEGATIVE); COLOR,URINE LIGHT YELLOW (YELLOW); GLUCOSE,URINE NEGATIVE (NEGATIVE); KETONES,URINE NEGATIVE (NEGATIVE); LEUKOCYTE ESTERASE,URINE NEGATIVE (NEGATIVE); NITRITE,URINE NEGATIVE (NEGATIVE); OCCULT BLOOD,URINE NEGATIVE (NEGATIVE); PROTEIN,URINE NEGATIVE (NEGATIVE); UROBILINOGEN,URINE 0.2 E.U./dL (0.2-1.0)
[2023-08-11 12:49] LABS: AMPHETAMINES SCREEN, URINE NEGATIVE (NEGATIVE); BARBITURATE SCREEN,URINE NEGATIVE (NEGATIVE); BENZODIAZEPINES SCREEN,URINE NEGATIVE (NEGATIVE); COCAINE METABOLITES,URINE NEGATIVE (NEGATIVE); METHADONE SCREEN, URINE NEGATIVE (NEGATIVE); METHAMPHETAMINES SCREEN, URINE NEGATIVE (NEGATIVE); OXYCODONE SCREEN,URINE NEGATIVE (NEGATIVE); PCP SCREEN,URINE NEGATIVE (NEGATIVE); PROPOXYPHENE SCREEN,URINE NEGATIVE (NEGATIVE); TCA SCREEN,URINE POSITIVE (NEGATIVE); THC SCREEN,URINE 50 NG/ML NEGATIVE (NEGATIVE)
[2023-08-11 12:52] LABS: ALANINE AMINOTRANSFERASE,ALT 23 U/L (14-63); ALBUMIN 3.64 g/dL (3.40-5.00); ALKALINE PHOSPHATASE 114 U/L (46-116); ANION GAP 10.6 mmol/L (5-15); ASPARTATE AMNIOTRANSFERASE,AST 21 U/L (15-37); BILIRUBIN TOTAL 0.4 mg/dL (0.2-1.0); BLOOD UREA NITROGEN,BUN 11 mg/dL (7-18); CALCIUM 8.8 mg/dL (8.7-10.3); CHLORIDE,CL 106 mmol/L (98-107); EST CRCL DRUG DOSING (CG) 74.54 mL/min; GLUCOSE RANDOM 87 mg/dL (70-140); POTASSIUM,K 4.6 mmol/L (3.5-5.1); PROTEIN TOTAL,TP 6.8 g/dL (6.4-8.2); SODIUM,NA 144 mmol/L (136-145)
[2023-08-11 12:53] LABS: ESTIMATED GFR 85 mL/min (>=60); ETHANOL BLOOD MEDICAL < 3 mg/dL (NOT DETECTED)
[2023-08-11 13:34] VITALS: BP 142/80
== END 2023-08-11 13:51 | disposition home or self-care (01) ==
LOC: KA.ED 11:59
DX: F31.9 Bipolar disorder, unspecified (principal); F41.9 Anxiety disorder, unspecified; I10 Essential (primary) hypertension; E03.9 Hypothyroidism, unspecified; Z88.8 Allergy status to other drugs, medicaments and biological substances; Z91.048 Other nonmedicinal substance allergy status; Z79.899 Other long term (current) drug therapy
CPT/HCPCS: 36415; 80053; 80305-QW; 80307; 81003; 85025; 96372; 99283; 99284; J2060